=== PATIENT | male | born 1945 | race Caucasian/White ===

== ENCOUNTER 2022-04-07 11:25 | Outpatient (CLI) | payer OTHER, SELFPAY ==
[2022-04-07 17:12] LABS: Chloride* 104 mmol/L (96-114); Potassium* 4.7 mmol/L (3.6-5.1); Sodium* 137 mmol/L (135-149)
[2022-04-07 17:14] LABS: Cholesterol* 187 mg/dL (90-199); Creatinine* 0.8 mg/dL (0.5-1.5); Estimated Glomerular Filt Rate 92 ml/min
[2022-04-07 17:15] LABS: Blood Urea Nitrogen* 15 mg/dL (7-30); Carbon Dioxide* 24 mmol/L (20-32); Glucose* 139 mg/dL (60-115); Triglycerides* 191 mg/dL (40-149)
[2022-04-07 17:16] LABS: Calcium* 9.3 mg/dL (8.4-10.6); HDL Cholesterol* 43 mg/dL (>=40); LDL Cholesterol Calculated 106 mg/dL (<100)
== END 2022-04-07 11:26 | disposition home or self-care (01) ==
PROVIDERS: PCP Family Medicine; Visit Provider Family Medicine
DX: I48.91 Unspecified atrial fibrillation (principal); I10 Essential (primary) hypertension; Z13.6 Encounter for screening for cardiovascular disorders; Z13.1 Encounter for screening for diabetes mellitus
CPT/HCPCS: 80048; 80061

== ENCOUNTER 2022-05-07 09:21 | Outpatient (CLI) | payer OTHER, SELFPAY ==
--- NOTE | 2022-05-07 10:00 | CRLHL7_ITS ---
For Patients: As a result of the Century Cures Act, medical imaging exams and procedure reports are released immediately into your electronic medical record. You may view this report before your referring provider. If you have questions, please contact your health care provider. Indication: ASCENDING AORTIC ANEURYSM Technique: Noncontrast CT chest Please note that all CT scans at this facility use dose modulation, iterative reconstruction, and/or weight-based dosing when appropriate to reduce radiation dose to as low as reasonably achievable. Comparison: None Findings: The ascending aorta measures 3.9 x 3.8 cm. Vascular calcifications are noted within the coronary arteries and at the aortic arch. Thyroid normal, as visualized. No adenopathy or pleural effusion. Upper abdomen is normal. No fracture. Lungs clear. No pulmonary nodule, infiltrate, edema or effusion. Mild dependent atelectasis. Impression: The ascending aorta is upper limits of normal in size measuring 3.9 x 3.8 cm. Please note that all CT scans at this facility use dose modulation, iterative reconstruction, and/or weight-based dosing when appropriate to reduce radiation dose to as low as reasonably achievable. Dictated by Brock Goldman MD @ 05/07/2022 1:18:15 PM (Electronically Signed)
== END 2022-05-07 09:22 | disposition home or self-care (01) ==
PROVIDERS: PCP Family Medicine; Visit Provider Family Medicine
DX: I71.21 Aneurysm of the ascending aorta, without rupture (principal)
CPT/HCPCS: 71250

== ENCOUNTER 2022-05-29 17:06 | Inpatient (IN) | payer OTHER, SELFPAY ==
[2022-05-29] VITALS (41 sets, daily range): BP systolic 95–136; BP diastolic 40–116; PULSE 78–122; RESP 18–22; TEMP 36.5; O2SAT 86–96; BMI 43.0
--- NOTE | 2022-05-29 17:24 | ED.GENADULT ---
HPI - General Adult General Time Seen by Provider: 17:24 Date Seen: 05/29/22 Chief complaint: Chest Pain Stated complaint: Possible AFIB Time Seen by Provider: 05/29/22 17:08 Source: patient and RN notes reviewed Mode of arrival: ambulatory Limitations: no limitations History of Present Illness HPI narrative: 77-year-old male is ambulatory in the ED with concern of possible atrial fibrillation. He has a history of atrial fibrillation. I did review notes from his last visit in clinic prior to going in. He endorses that he is still been taking his Xarelto every other day. He states he has been sick with cough and cold symptoms for about 3 weeks. Still has ongoing coughing at night, nonproductive. No fevers or chills or night sweats. Had sore throat and some congestion, improved. Had some burning type chest pain ongoing today. Notes no changes in his appetite and no abdominal symptoms with this. Denies any swelling of his lower extremities. Is feeling short of breath. He does not feel his faster racing pulse. Was in clinic in mid April and does not seem to have been in atrial fibrillation based on clinical exam. Denies any alcohol use, no nicotine products. Does drink about 2 cups of coffee in the morning. Related Data Home Medications Medication Instructions Recorded Confirmed budesonide 180 mcg/actuation 2 inhalation BID 04/07/22 04/07/22 breath activated powder inhaler mesalamine 400 mg capsule (with mg PO .Bedtime 04/07/22 04/07/22 delayed release tablets inside) tramadol 50 mg tablet 50 - 100 mg PO Q6H PRN 04/07/22 04/07/22 Previous Rx's Medication Instructions Recorded metformin 500 mg tablet,extended 1,000 mg PO QDAY #180 tabs 04/06/22 release 24 hr losartan 50 mg tablet 50 mg PO QDAY #90 tabs 04/07/22 rivaroxaban 20 mg tablet 20 mg PO DAILY #90 tabs 04/07/22 metoprolol succinate 50 mg See Rx Instructions .Route 05/22/22 tablet,extended release 24 hr .COMPLEX #90 tabs Allergies Allergy/AdvReac Type Severity Reaction Status Date / Time No Known Allergies Allergy Unknown Unverified 04/03/22 17:14 Review of Systems Status of ROS: Reports: 10 or more systems reviewed and unremarkable except as noted in History and below PFSH PFSH Surgical History History of umbilical hernia repair Family History Other Colon cancer Prostate cancer Social History Smoking Status: Former smoker How often do you have a drink containing alcohol: never How often do you have six or more drinks on one occasion: Never AUDIT-C Alcohol total score: 0 Non-prescribed substance use: denies use Exam Const: Vital Signs, click to edit/add: Vital Signs - 24 hr 05/29/22 17:12 05/29/22 17:50 05/29/22 17:25 Temperature 97.7 F Pulse Rate 78 Pulse Rate [Right Pulse Oximeter] 108 H Respiratory Rate 18 Blood Pressure 119/71 Blood Pressure [Ri ght Upper Arm] 117/81 Pulse Oximetry 93 92 94 Oxygen Delivery Me thod Room Air 05/29/22 17:26 05/29/22 17:30 05/29/22 17:36 Temperature Pulse Rate 97 120 H 87 Pulse Rate [Right Pulse Oximeter] Respiratory Rate Blood Pressure 107/77 Blood Pressure [Ri ght Upper Arm] Pulse Oximetry 94 96 91 Oxygen Delivery Me thod 05/29/22 17:45 05/29/22 17:47 05/29/22 17:48 Temperature Pulse Rate 90 95 92 Pulse Rate [Right Pulse Oximeter] Respiratory Rate Blood Pressure 104/71 Blood Pressure [Ri ght Upper Arm] Pulse Oximetry 94 95 94 Oxygen Delivery Me thod 05/29/22 18:00 05/29/22 18:02 05/29/22 18:17 Temperature Pulse Rate 99 92 96 Pulse Rate [Right Pulse Oximeter] Respiratory Rate Blood Pressure 96/81 Blood Pressure [Ri ght Upper Arm] Pulse Oximetry 94 93 94 Oxygen Delivery Me thod 05/29/22 18:30 05/29/22 18:32 05/29/22 18:45 Temperature Pulse Rate 92 88 94 Pulse Rate [Right Pulse Oximeter] Respiratory Rate Blood Pressure 95/67 Blood Pressure [Ri ght Upper Arm] Pulse Oximetry 95 90 92 Oxygen Delivery Me thod 05/29/22 19:00 05/29/22 19:02 05/29/22 19:03 Temperature Pulse Rate 95 99 111 H Pulse Rate [Right Pulse Oximeter] Respiratory Rate Blood Pressure 114/95 H Blood Pressure [Ri ght Upper Arm] Pulse Oximetry 94 94 89 Oxygen Delivery Me thod 05/29/22 19:15 05/29/22 19:25 05/29/22 19:30 Temperature Pulse Rate 106 H 101 H 101 H Pulse Rate [Right Pulse Oximeter] Respiratory Rate Blood Pressure 127/76 Blood Pressure [Ri ght Upper Arm] Pulse Oximetry 92 94 86 L Oxygen Delivery Ok thod 05/29/22 19:33 05/29/22 19:34 05/29/22 20:00 Temperature Pulse Rate 90 92 85 Pulse Rate [Right Pulse Oximeter] Respiratory Rate Blood Pressure 107/66 Blood Pressure [Ri ght Upper Arm] Pulse Oximetry 95 91 94 Oxygen Delivery Ok thod 05/29/22 20:03 05/29/22 20:04 05/29/22 20:30 Temperature Pulse Rate 94 122 H 101 H Pulse Rate [Right Pulse Oximeter] Respiratory Rate Blood Pressure 108/40 L Blood Pressure [Ri ght Upper Arm] Pulse Oximetry 92 92 90 Oxygen Delivery Ok thod 05/29/22 20:33 Temperature Pulse Rate 84 Pulse Rate [Right Pulse Oximeter] Respiratory Rate Blood Pressure 107/93 H Blood Pressure [Ri ght Upper Arm] Pulse Oximetry 92 [facility] has reviewed patient's vital signs: yes Common normals: no apparent distress, oriented x3, no limitations, healthy appearing, alert and well nourished General appearance: cooperative, comfortable, well kempt and well developed Nutritional appearance: obese HENMT: Common normals: normocephalic, head/scalp atraumatic, hearing grossly normal bilaterally, external ears normal, external nose normal, nasal mucous membranes and turbinates normal, moist oral mucous membranes and oropharynx normal Head and scalp: normocephalic and atraumatic Nose: external nose normal and nasal mucous membranes and turbinates normal External ear: external ears normal Eye: Common normals: PERRL, EOMs intact bilaterally, conjunctivae normal and no scleral icterus Conjunctiva: conjunctiva(e) normal Pupil: PERRL Neck & C-Spine: Common normals: full ROM, no lymphadenopathy, supple, no meningeal signs and thyroid normal Thyroid: thyroid normal Chest: Common normals: inspection of chest normal and palpation of chest normal Resp: Common normals: normal respiratory effort, no retractions, no use of accessory muscles and clear to auscultation bilaterally (Diminished lung sounds bilaterally but no crackles heard) Effort & inspection: able to speak in complete sentences Auscultation: clear to auscultation bilaterally (Diminished lung sounds bilaterally but no crackles heard) Cardio: Common normals: no murmurs Rate: tachycardic (Ranges anywhere from low 100s up to 150 when I am in with him) Rhythm: abnormal rhythm irregularly irregular Other: Neck is thick, difficult to assess jugular venous distension. GI: Common normals: Normal to inspection, nondistended, normoactive bowel sounds present, soft to palpation, non-tender, no hepatosplenomegaly, no masses and no bruits Palpation: soft and no hepatosplenomegaly Extremity: Other: No lower extremity edema. Neuro: Common normals: oriented x3, CN's II-XII intact bilaterally, moves all extremities, no focal motor deficits and no sensory deficits noted Sensorium/orientation: alert Meningeal signs: no meningeal signs Psych: Appearance: well kempt Course Course Hospital Course: Nursing staff have patient on cardiac monitoring, appears to be atrial fibrillation, will confirm with an EKG. Will obtain portable chest x-ray to rule out any significant congestive heart failure. Will get appropriate labs. Unfortunately, since he has been taking his Xarelto every other day for some time, he is not a candidate for cardio version unless imminently life-threatening. Have reviewed the stroke risk if not appropriately anticoagulated with cardioversion. Will try some IV metoprolol to capture rate control. Obviously we will be getting a troponin on him as well. Reevaluation(s) Reevaluation #1: Reviewed with Ankur that there is no evidence of any congestive heart failure on his chest x-ray or clinically on my examination. He is feeling a bit better with his heart rate down a little lower. When I am in talking to him he is in the 90s too low 1 100s. Will give him 25 mg oral metoprolol tartrate. I believe he is on 50 mg XL daily. He wanted to know if he was still in atrial fibrillation, reviewed with him he still was. It is possible he may not come out of this and we at best may need to work at rate control. I have talked to him about hospitalization versus outpatient management. He states he does not have a pulse oximeter at home that he could monitors pulse with. Did review with him again that he needs to take his anticoagulant daily to prevent stroke risk from this. Time: 19:11 Reevaluation #2: Patient was seen, reviewed my recommendation for hospitalization. Unfortunately when I came in, patient was experiencing a right calf cramp. Did assist him in standing up, pulse jumped to 140s just with the motion of moving to sit up and stand up. Have reviewed with our hospitalist my concern about him not being able to manage a titration at home of metoprolol. She agrees, feels that his blood pressure warrants watching. Nursing staff was able to find an echo from 2019, that is the most recent we have on file. EF was good then. No significant valvular abnormalities at that time. He will likely get an updated echo upon talking to our hospitalist tomorrow. At this time I do not feel he needs to drip, would plan on titrating with oral metoprolol. Once patient settled back down from his leg cramp, did go back into the 90s. I do wonder if he might need an antiarrhythmic. Hospitalist agrees to take over care. Time: 20:59 Vital Signs Vital signs: Initial Vital Signs Temperature 97.7 F 05/29/22 17:12 Temperature Source Temporal Artery Scan 05/29/22 17:12 Pulse Rate 108 H 05/29/22 17:12 Pulse Rhythm 05/29/22 17:12 Respiratory Rate 18 05/29/22 17:12 Blood Pressure 117/81 05/29/22 17:12 Blood Pressure Mean 93 05/29/22 17:12 Blood Pressure Position Sitting 05/29/22 17:12 Pulse Oximetry 93 05/29/22 17:12 Oxygen Delivery Method 05/29/22 17:12 Vital Signs Temperature 97.7 F 05/29/22 17:12 Pulse Rate 108 H 05/29/22 17:12 Respiratory Rate 18 05/29/22 17:12 Blood Pressure 117/81 05/29/22 17:12 Pulse Oximetry 93 05/29/22 17:12 Oxygen Delivery Method 05/29/22 17:12 Temperature 97.7 F 05/29/22 17:12 Pulse Rate 84 05/29/22 20:33 Respiratory Rate 18 05/29/22 17:12 Blood Pressure 107/93 H 05/29/22 20:33 Pulse Oximetry 92 05/29/22 20:33 Oxygen Delivery Method 05/29/22 17:12 Medical Decision Making Lab Data Lab results reviewed: Yes I reviewed the patient's lab results Labs: Lab Results 05/29/22 05/29/22 05/29/22 Range/Units 17:35 17:35 17:35 WBC 9.66 (4.50-11.00) K/uL RBC 4.95 (4.30-5.90) m/uL Hgb 15.1 (13.5-17.5) gm/dL Hct 44.8 (37.0-53.0) % MCV 91 (80-100) fL MCH 31 (26-34) pg MCHC 34 (32-36) gm/dL RDW Coeff of Jennifer 13.2 (11.5-15.5) % Plt Count 260 (140-440) K/uL Neut % (Auto) 76.6 H (42.0-72.0) % Lymph % (Auto) 11.8 L (20-44) % [place] % (Auto) 10.4 (0.0-11.0) % Eos % (Auto) 0.9 (0.0-7.0) % Baso % (Auto) 0.1 (0.0-3.0) % Neut # (Auto) 7.40 H (1.7-7.0) K/uL Lymph # (Auto) 1.10 (0.90-2.90) K/uL [place] # (Auto) 1.00 H (0.00-0.90) K/UL Eos # (Auto) 0.09 (0.00-0.50) K/uL Baso # (Auto) 0.01 (0.00-0.30) K/uL Sodium 137 (135-149) mmol/L Potassium 4.3 (3.6-5.1) mmol/L Chloride 105 (96-114) mmol/L Carbon Dioxide 22 (20-32) mmol/L BUN 20 (7-30) mg/dL Creatinine 0.9 (0.5-1.5) mg/dL Estimated Creat Clear 65.90 Estimated GFR 89 ml/min Glucose 138 H (60-115) mg/dL Calcium 9.6 (8.4-10.6) mg/dL Magnesium 1.9 (1.5-2.6) mg/dL Total Bilirubin 0.8 (0.1-1.5) mg/dL AST 24 (12-35) U/L ALT 23 (4-50) U/L Alkaline Phosphatase 87 (40-150) U/L NT-Pro-B Natriuret Pep 1220 pg/mL Total Protein 7.8 (6.0-8.3) g/dL Albumin 4.5 (3.3-5.0) g/dL SARS-CoV-2 (PCR) Negative SARS-CoV-2 (Negative) Influenza Type A (PCR) Negative PCR FLU A (Negative) Influenza Type B (PCR) Negative PCR FLU B (Negative) RSV (PCR) Negative PCR RSV (Negative) POC Troponin I (0.01-0.04) ng/ml 05/29/22 Range/Units 17:35 WBC (4.50-11.00) K/uL RBC (4.30-5.90) m/uL Hgb (13.5-17.5) gm/dL Hct (37.0-53.0) % MCV (80-100) fL MCH (26-34) pg MCHC (32-36) gm/dL RDW Coeff of Jennifer (11.5-15.5) % Plt Count (140-440) K/uL Neut % (Auto) (42.0-72.0) % Lymph % (Auto) (20-44) % [place] % (Auto) (0.0-11.0) % Eos % (Auto) (0.0-7.0) % Baso % (Auto) (0.0-3.0) % Neut # (Auto) (1.7-7.0) K/uL Lymph # (Auto) (0.90-2.90) K/uL [place] # (Auto) (0.00-0.90) K/UL Eos # (Auto) (0.00-0.50) K/uL Baso # (Auto) (0.00-0.30) K/uL Sodium (135-149) mmol/L Potassium (3.6-5.1) mmol/L Chloride (96-114) mmol/L Carbon Dioxide (20-32) mmol/L BUN (7-30) mg/dL Creatinine (0.5-1.5) mg/dL Estimated Creat Clear Estimated GFR ml/min Glucose (60-115) mg/dL Calcium (8.4-10.6) mg/dL Magnesium (1.5-2.6) mg/dL Total Bilirubin (0.1-1.5) mg/dL AST (12-35) U/L ALT (4-50) U/L Alkaline Phosphatase (40-150) U/L NT-Pro-B Natriuret Pep pg/mL Total Protein (6.0-8.3) g/dL Albumin (3.3-5.0) g/dL SARS-CoV-2 (PCR) (Negative) Influenza Type A (PCR) (Negative) Influenza Type B (PCR) (Negative) RSV (PCR) (Negative) POC Troponin I 0.01 (0.01-0.04) ng/ml Imaging Data Chest x-ray: Attestation: I have reviewed the pertinent imaging results. My impression: No definitive CHF in my preliminary review. Radiologist's impression: Patient: ANKUR LANNY Facility:?[facility] Patient ID:?[id number] Site Patient ID:?[id number]. Site :?[id number] Study:?XRay Chest Portable 1v-05/29/2022 6:44:00 PM Ordering Physician:Harshil Marquez Final Report: INDICATION: Cough, atrial fibrillation TECHNIQUE: Chest radiograph 1 view COMPARISON: 03/16/2019 FINDINGS: The sensitivity and specificity of the exam are severely limited by the patient`s body habitus. Mediastinum: The mediastinum is normal in appearance. Mild cardiomegaly is noted without interval change. Lung: Small lung volumes are present with mild bibasilar atelectasis. No sign of pleural effusion seen. No pneumothorax is identified. Bone and Soft tissue: Unremarkable for age. IMPRESSION: 1. Mild cardiomegaly is noted without interval change. Dictated by Truman Avila MD @ 05/29/2022 6:59:01 PM Dictated by: Truman Avila MD @ 05/29/2022 18:59:03 (Electronic Signature) ECG Data Attestation: I personally reviewed and interpreted this ECG as follows: (Atrial fibrillation with rapid ventricular response, 118 beats per minute. Incomplete right bundle branch block. No definitive ischemia.) Critical Care Time Critical Care Time Critical Care Time: Yes Attestation: The patient required my highest level preparedness to intervene emergently and I personally spent this critical care time directly and personally managing the patient. This critical care time included: Obtaining a history; Examining the patient; Pulse oximetry; Ordering and reviewing of studies; Arranging urgent treatment with development of a management plan; Evaluation of patients response to treatment; Frequent reassessment discussions with other providers. This critical care time was performed to assess and manage the high probability of imminent life-threatening deterioration that could result in multiorgan failure. It was exclusive of separate billable procedures and treating other patients and teaching time. Total Critical Care Time in Minutes: 30 (Initial 30 minutes of critical care time for evaluation and management of atrial fibrillation with RVR.) Discharge Plan Discharge Clinical Impression: Atrial fibrillation with rapid ventricular response Patient Disposition: Admitted As Inpatient Prescriptions: No Action mesalamine 400 mg capsule (with del rel tablets) PO .Bedtime budesonide 180 mcg/actuation aerosol powdr breath activated 2 inhalation BID tramadol 50 mg tablet 50 - 100 mg PO Q6H PRN losartan 50 mg tablet 50 mg PO QDAY Qty: 90 3RF rivaroxaban 20 mg tablet 20 mg PO DAILY Qty: 90 3RF Rx Instructions: WITH MEAL metformin 500 mg tablet extended release 24 hr 1,000 mg PO QDAY Qty: 180 3RF metoprolol succinate 50 mg tablet extended release 24 hr See Rx Instructions .ROUTE .COMPLEX Qty: 90 3RF Dose Instruction: TAKE 1 TABLET BY MOUTH EVERY DAY DUE FOR ANNUAL PHYSICAL, PLEASE CALL CLINIC TO SCHEDULE. Rx Instructions: TAKE 1 TABLET BY MOUTH EVERY DAY DUE FOR ANNUAL PHYSICAL, PLEASE CALL CLINIC TO SCHEDULE. Follow Up/Referrals: John Chavis MD [Primary Care Provider] -
--- NOTE | 2022-05-29 17:31 | CRLHL7_ITS ---
For Patients: As a result of the Century Cures Act, medical imaging exams and procedure reports are released immediately into your electronic medical record. You may view this report before your referring provider. If you have questions, please contact your health care provider. INDICATION: Cough, atrial fibrillation TECHNIQUE: Chest radiograph 1 view COMPARISON: 03/16/2019 FINDINGS: The sensitivity and specificity of the exam are severely limited by the patient`s body habitus. Mediastinum: The mediastinum is normal in appearance. Mild cardiomegaly is noted without interval change. Lung: Small lung volumes are present with mild bibasilar atelectasis. No sign of pleural effusion seen. No pneumothorax is identified. Bone and Soft tissue: Unremarkable for age. IMPRESSION: 1. Mild cardiomegaly is noted without interval change. Dictated by Truman Avila MD @ 05/29/2022 6:59:01 PM Dictated by: Truman Avila MD @ 05/29/2022 18:59:03 (Electronically Signed)
[2022-05-29] MEDS: METOPROLOL TARTRATE 1 MG/ML inj 5 MG IVP (17:38)
[2022-05-29 18:05] LABS: Troponin, Point-of-Care* 0.01 ng/ml (0.01-0.04)
[2022-05-29 18:06] LABS: Basophils Absolute Auto 0.01 K/uL (0.00-0.30); Basophils Percent Auto 0.1 % (0.0-3.0); Eosinophils Absolute Auto 0.09 K/uL (0.00-0.50); Eosinophils Percent Auto 0.9 % (0.0-7.0); Hematocrit 44.8 % (37.0-53.0); Hemoglobin* 15.1 gm/dL (13.5-17.5); Immature Granulocytes Abs Auto 0.02 K/uL (0.00-0.30); Immature Granulocytes Pct Auto 0.2 %; Lymphocytes Percent Auto 11.8 % (20-44); Mean Corpuscular HGB Conc 34 gm/dL (32-36); Mean Corpuscular Hemoglobin 31 pg (26-34); Mean Corpuscular Volume 91 fL (80-100); Monocytes Percent Auto 10.4 % (0.0-11.0); Neutrophils Percent Auto 76.6 % (42.0-72.0); Platelet Count* 260 K/uL (140-440); RDW Coefficient of Variation % 13.2 % (11.5-15.5); Red Blood Count 4.95 m/uL (4.30-5.90); White Blood Count* 9.66 K/uL (4.50-11.00)
[2022-05-29 18:16] LABS: Slide Review Reflex No
[2022-05-29 18:19] LABS: Chloride* 105 mmol/L (96-114)
[2022-05-29 18:20] LABS: Albumin* 4.5 g/dL (3.3-5.0); Potassium* 4.3 mmol/L (3.6-5.1); Sodium* 137 mmol/L (135-149)
[2022-05-29 18:22] LABS: Bilirubin Total* 0.8 mg/dL (0.1-1.5); Creatinine* 0.9 mg/dL (0.5-1.5); Estimated Glomerular Filt Rate 89 ml/min
[2022-05-29 18:23] LABS: Alanine Aminotransferase* 23 U/L (4-50); Alkaline Phosphatase* 87 U/L (40-150); Aspartate Amino Transferase* 24 U/L (12-35); Blood Urea Nitrogen* 20 mg/dL (7-30); Calcium* 9.6 mg/dL (8.4-10.6); Carbon Dioxide* 22 mmol/L (20-32); Glucose* 138 mg/dL (60-115); Magnesium* 1.9 mg/dL (1.5-2.6); Total Protein* 7.8 g/dL (6.0-8.3)
[2022-05-29 18:41] LABS: PCR FLU A Negative PCR FLU A (Negative); PCR FLU B Negative PCR FLU B (Negative); PCR RSV Negative PCR RSV (Negative)
[2022-05-29 18:42] LABS: NT Pro B Type NatriureticPept* 1220 pg/mL; SARS PCR* Negative SARS-CoV-2 (Negative)
[2022-05-29] MEDS: METOPROLOL TARTRATE 25 MG TABLET PO ×2 (19:23→23:18)
--- NOTE | 2022-05-29 22:12 | ED.NURSE ---
Report called to M/S RN.
--- NOTE | 2022-05-29 22:49 | PM.IMHP1 ---
Hospitalist- H&P: HPI History of Present Illness Date Seen: 05/29/22 Chief complaint: afib rvr Narrative: ADMISSION HISTORY AND PHYSICAL - HOSPITALIST Chief Complaint: Some chest burning, have not been feeling well HPI: 77-year-old chuck has a history of paroxysmal AFib on oral anticoagulation and beta blockade who presents with 3 weeks of an upper respiratory infection, sore throat and starting today some substernal chest discomfort. He has known AFib that has been in RVR in the past. He has been cardioverted twice. He is taking Xarelto but admits he only takes it every other day because sometimes he bruises are gets bloody noses. No known history of CAD or CHF. From a URI (one of the grandkids gave me it - covid negative. boosted and has flu shot) is getting better. He wasn't sure after shoveling if he was having an RI, broke a rib from coughing or was in AFIB. So he came on in. ED - got a CXR and labs IV lopressor and oral - observation - still jumping into the 120's with exertion. I've updated the PFSH, medications and allergies in the [facility] tabs. INVESTIGATIONS: LABS/MICRO/ECG/IMAGING Blood pressure has been a little soft at 108/40 with presentation and now is 136/116 Pulses been from 122-95, AFib Respiratory rate normal, pulse ox is been low 90. CBCs unremarkable Electrolytes, renal function all normal Glucose 138 A1c in March was 7.5 Magnesium, LFTs all normal BNP 1220 - historically I can see 1140 in 2014 Respiratory viral pathogen panel negative CXR from admission Mild cardiomegaly is noted without interval change. ECHO 02/2019 Final Impressions: 1. Technically limited exam. 2. Echo contrast was administrered to enhance visualization of all left ventricular segments. 3. Normal LV size, moderately increased wall thickness, normal global systolic function with an estimated EF of 65 - 70%. 4. Right ventricular cavity size is mildly enlarged, global systolic RV function is normal. 5. Mildly enlarged left atrium. 6. The aortic valve is trileaflet and sclerotic, no stenosis and no regurgitation. 7. The aortic sinus is dilated with a maximal diameter of 4.3 cm. REVIEW OF SYSTEMS: 12-point ROS completed with patient and negative unless otherwise stated in HPI or below. PHYSICAL EXAM: CODE STATUS: FULL CODE CONSTITUTIONAL: alert; a little crankly - calls himself an old fart and I feel shitty VITAL SIGNS: see record. HEENT: Normocephalic, atraumatic. PERRL, EOMI, conjunctivae pink, no scleral icterus. Ears and nose externally normal. Pharynx normal. NECK: No JVD. No carotid bruit, no thyromegaly, no adenopathy. CHEST: Clear to auscultation bilaterally - DISTANT HEART: S1 and S2 normal. No harsh murmurs. Edema MINIMAL MUSCULOSKELETAL: No gross joint deformity or swelling. NEURO: Cranial nerves intact. Grossly intact. No asymmetric findings. SKIN: No rashes, petechiae, concerning changes PSYCHIATRIC: Euthymic. ADMIT TO MEDSURG: FLOOR CARE DVT: XARELTO GI: PO intake Time spent: 70 minutes examining patient, conferring with family and patient, care staff, developing care plan [facility] Medical History Adenomatous polyp of colon Ascending aortic aneurysm Family history of colon cancer Osteoarthritis of right hip Paroxysmal atrial fibrillation Surgical History History of umbilical hernia repair Family History Other Colon cancer Prostate cancer Social History Highest level of school completed/degree received: high school graduate Smoking Status: Former smoker Do you use any of these nicotine containing products: None Second hand tobacco smoke exposure: No How often do you have a drink containing alcohol: never How often do you have six or more drinks on one occasion: Never AUDIT-C Alcohol total score: 0 Non-prescribed substance use: denies use Caffeine: Yes service: Yes Meds Home Medications and Allergies Home Medications Medication Instructions Recorded Confirmed Type budesonide 180 mcg/actuation 2 inh inhalation BID 04/07/22 05/29/22 History breath activated powder inhaler mesalamine 400 mg capsule (with 1,200 mg PO BID 04/07/22 05/29/22 History delayed release tablets inside) tramadol 50 mg tablet 50 - 100 mg PO Q6H PRN 04/07/22 05/29/22 History Allergies Allergy/AdvReac Type Severity Reaction Status Date / Time No Known Allergies Allergy Unknown Unverified 04/03/22 17:14 Exam Const: Vital Signs, click to edit/add: Vital Signs - 24 hr 05/29/22 17:12 05/29/22 17:50 05/29/22 17:25 Temperature 97.7 F Pulse Rate 78 Pulse Rate [Right Pulse Oximeter] 108 H Respiratory Rate 18 Blood Pressure 119/71 Blood Pressure [Ri ght Upper Arm] 117/81 Pulse Oximetry 93 92 94 Oxygen Delivery Me thod Room Air 05/29/22 17:26 05/29/22 17:30 05/29/22 17:36 Temperature Pulse Rate 97 120 H 87 Pulse Rate [Right Pulse Oximeter] Respiratory Rate Blood Pressure 107/77 Blood Pressure [Ri ght Upper Arm] Pulse Oximetry 94 96 91 Oxygen Delivery Me thod 05/29/22 17:45 05/29/22 17:47 05/29/22 17:48 Temperature Pulse Rate 90 95 92 Pulse Rate [Right Pulse Oximeter] Respiratory Rate Blood Pressure 104/71 Blood Pressure [Ri ght Upper Arm] Pulse Oximetry 94 95 94 Oxygen Delivery Me thod 05/29/22 18:00 05/29/22 18:02 05/29/22 18:17 Temperature Pulse Rate 99 92 96 Pulse Rate [Right Pulse Oximeter] Respiratory Rate Blood Pressure 96/81 Blood Pressure [Ri ght Upper Arm] Pulse Oximetry 94 93 94 Oxygen Delivery Me thod 05/29/22 18:30 05/29/22 18:32 05/29/22 18:45 Temperature Pulse Rate 92 88 94 Pulse Rate [Right Pulse Oximeter] Respiratory Rate Blood Pressure 95/67 Blood Pressure [Ri ght Upper Arm] Pulse Oximetry 95 90 92 Oxygen Delivery Me thod 05/29/22 19:00 05/29/22 19:02 05/29/22 19:03 Temperature Pulse Rate 95 99 111 H Pulse Rate [Right Pulse Oximeter] Respiratory Rate Blood Pressure 114/95 H Blood Pressure [Ri ght Upper Arm] Pulse Oximetry 94 94 89 Oxygen Delivery Me thod 05/29/22 19:15 05/29/22 19:25 05/29/22 19:30 Temperature Pulse Rate 106 H 101 H 101 H Pulse Rate [Right Pulse Oximeter] Respiratory Rate Blood Pressure 127/76 Blood Pressure [Ri ght Upper Arm] Pulse Oximetry 92 94 86 [facility] 19:33 05/29/22 19:34 05/29/22 20:00 Temperature Pulse Rate 90 92 85 Pulse Rate [Right Pulse Oximeter] Respiratory Rate Blood Pressure 107/66 Blood Pressure [Ri ght Upper Arm] Pulse Oximetry 95 91 94 [facility] 05/29/22 20:03 05/29/22 20:04 05/29/22 20:30 Temperature Pulse Rate 94 122 H 101 H Pulse Rate [Right Pulse Oximeter] Respiratory Rate Blood Pressure 108/40 L Blood Pressure [Ri ght Upper Arm] Pulse Oximetry 92 92 90 Oxygen Delivery [facility] 05/29/22 20:33 05/29/22 20:34 05/29/22 20:45 Temperature Pulse Rate 84 102 H 94 Pulse Rate [Right Pulse Oximeter] Respiratory Rate Blood Pressure 107/93 H Blood Pressure [Ri ght Upper Arm] Pulse Oximetry 92 90 90 Oxygen Delivery [facility] 05/29/22 21:00 05/29/22 21:02 05/29/22 21:15 Temperature Pulse Rate 93 79 92 Pulse Rate [Right Pulse Oximeter] Respiratory Rate Blood Pressure 110/77 Blood Pressure [Ri ght Upper Arm] Pulse Oximetry 92 95 91 Oxygen Delivery [facility] 05/29/22 21:30 05/29/22 21:34 05/29/22 22:00 Temperature Pulse Rate 87 94 101 H Pulse Rate [Right Pulse Oximeter] Respiratory Rate Blood Pressure 127/89 Blood Pressure [Ri ght Upper Arm] Pulse Oximetry 94 91 91 [facility] 05/29/22 22:03 Temperature Pulse Rate 95 Pulse Rate [Right Pulse Oximeter] Respiratory Rate Blood Pressure 136/116 H Blood Pressure [Ri ght Upper Arm] Pulse Oximetry 88 Oxygen Delivery [facility] Hospitalist - H&P: Result Labs Labs: Short CBC 05/29/22 Range/Units 17:35 WBC 9.66 (4.50-11.00) K/uL Hgb 15.1 (13.5-17.5) gm/dL Hct 44.8 (37.0-53.0) % Plt Count 260 (140-440) K/uL BMP 05/29/22 17:35 Sodium 137 Potassium 4.3 Chloride 105 Carbon Dioxide 22 BUN 20 Creatinine 0.9 Glucose 138 H Calcium 9.6 Liver Function 05/29/22 Range/Units 17:35 Total Bilirubin 0.8 (0.1-1.5) mg/dL AST 24 (12-35) U/L ALT 23 (4-50) U/L Alkaline Phosphatase 87 (40-150) U/L Albumin 4.5 (3.3-5.0) g/dL Assessment and Plan Assessment and plan (1) Atrial fibrillation with rapid ventricular response: Problem comment: 2014; has been cardioverted twice in the past. last echo was 2019. he is on xarelto (but takes it QOD 2/2 nose bleeds and bruising). he may need more betablockade than 25mg toprol xl qam. I will put him on 25 po q4 with HOLD PARAMETERS. Update echo. Likely can discharge in the next 24. 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 on orals. Status: Acute (5) Obstructive sleep apnea syndrome: Problem comment: Did not tolerate CPAP Status: Acute (6) Morbid obesity with body mass index (BMI) of 40.0 to 44.9 in adult: Problem comment: BMI 43. Status: Acute
[2022-05-29] MEDS: METFORMIN ER 500 MG 1000 MG PO (23:18)
[2022-05-29] MEDS: LOSARTAN POTASSIUM 50 MG TABLET PO (23:19)
[2022-05-30] VITALS (9 sets, daily range): BP systolic 89–127; BP diastolic 51–88; PULSE 80–104; RESP 20–22; TEMP 36.4–36.7; O2SAT 92–94
[2022-05-30] MEDS: METOPROLOL TARTRATE 25 MG TABLET PO (02:41)
--- NOTE | 2022-05-30 05:15 | PC.NURSE ---
Addendum entered by Clive Salas RN 05/30/22 07:00: Bp at 0630 was 98/81 and metoprolol held per order. Original Note: Admission note: Pt arrived at the unit at 2220 on a W/C accompanied by ED staff. Alert and oriented on arrival and able to independently ambulate in room. Admission assessment completed and V/S stable. Pt complained of mild burning sensation and chest tightness but no SOB. examined pt and ordered metoprolol for the A. fib. Blood glucose level at 2300 was 163. Pt on continuous pulse and telemetry monitoring. Pt had adequate sleep tonight.
[2022-05-30 07:14] LABS: HCO3 VBG 27 mmol/L (21-28); PCO2 VBG 43 mmHG (40-50); PO2 VBG 43.9 mmHG (25-47); pH VBG 7.407 (7.32-7.43)
[2022-05-30 07:36] LABS: Chloride* 105 mmol/L (96-114); Potassium* 4.3 mmol/L (3.6-5.1); Sodium* 137 mmol/L (135-149)
[2022-05-30 07:39] LABS: Carbon Dioxide* 26 mmol/L (20-32); Creatinine* 0.8 mg/dL (0.5-1.5); Estimated Glomerular Filt Rate 92 ml/min
[2022-05-30 07:40] LABS: Blood Urea Nitrogen* 16 mg/dL (7-30); Glucose* 157 mg/dL (60-115)
[2022-05-30 07:46] LABS: NT Pro B Type NatriureticPept* 1050 pg/mL
[2022-05-30 07:51] LABS: Troponin I* < 0.01 ng/mL (0.01-0.04)
[2022-05-30 08:11] LABS: Thyroid Stimulating Hormone* 0.867 uIU/mL (0.270-4.20)
[2022-05-30] MEDS: LOSARTAN POTASSIUM 50 MG TABLET PO (09:43)
[2022-05-30] MEDS: METFORMIN ER 500 MG 1000 MG PO (09:43)
[2022-05-30] MEDS: RIVAROXABAN 10 MG TABLET 20 MG PO (09:43)
--- NOTE | 2022-05-30 11:19 | PM.DS1 ---
DS: Providers Provider Time Seen by Provider: 07:55 Date Seen: 06/01/22 Date of admission: 05/29/22 22:18 Primary care physician: John Chavis MD Admitting Clinician: Vinod Royal MD Consults: 05/29/22 22:39 Consult to Occupational Therapy [CONS] Routine Comment: Reason(s) for OT Consult:: Evaluate and Treat Any Restrictions?:: No Restrictions Consult to Physical Therapy [CONS] Routine Comment: Reason(s) for PT Consult:: Evaluate and Treat Any Restrictions?:: No Restrictions Consult to Power Shear Operator [CONS] Routine Comment: Reason for Consult:: Social Service Consult Attending Physician on discharge: Faith Alegria MD Date of Discharge: 06/01/22 DS: Diagnosis Discharge Diagnosis (1) Atrial fibrillation with rapid ventricular response: Status: Acute Problem details: 2014; has been cardioverted twice in the past. ECHO 05/30/22 prelim unchanged from 2019. He is on xarelto (but takes it QOD secondary to nose bleeds and bruising). (2) Hypertension: Status: Acute Problem details: LOW BP - holding losartan. 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 on orals. (5) Obstructive sleep apnea syndrome: Status: Acute Problem details: Did not tolerate CPAP (6) Morbid obesity with body mass index (BMI) of 40.0 to 44.9 in adult: Status: Acute Problem details: BMI 43. (7) Dilatation of aortic sinus of Valsalva: Status: Acute Problem details: ECHO 05/30/22: The aortic sinus is dilated with maximal diameter of 4.3 cm - will need outpatient follow up DS: Summary Hospital Course Hospital Course: This is a 77-year-old male with history of paroxysmal atrial fibrillation for which he is on beta-blockade and oral anticoagulation had substernal chest discomfort and was found to be in atrial fibrillation with rapid ventricular rate. He had had a URI symptoms along with a sore throat for about 3 weeks prior to this. He developed substernal chest pain while shoveling the driveway. Was given IV and oral metoprolol but continued to jump into the 120s with exertion. He was placed on p.r.n. short-acting metoprolol dosing overnight, but low blood pressures complicated heart rate control. Losartan was held. I discontinued his usual long-acting metoprolol dose and started him on short-acting metoprolol at 75 mg twice a day with p.r.n. short-acting metoprolol. He did very well with this regimen and only needed to extra doses of oral metoprolol 25 mg during 24 hours. His blood pressure had improved and he is tolerating metoprolol 100 mg twice a day and will be discharged on that today. During this hospitalization echocardiogram was obtained and showed some decrease in RV function from previously. He did not have any heart failure symptoms during this hospital stay. He is discharged home in stable condition. Note to PCP: Consider referral to cardiology for atrial fibrillation. Also please note that he has new finding of aortic sinus dilatation which will need outpatient follow-up. His losartan is on hold for low blood pressure in the hospital, but this may be able to be restarted at a lower dose by the time he sees you. Time Spent with Patient Time attestation: Total time spent providing and/or coordinating discharge services: Exam Narrative: Exam Narrative: General: No acute distress. Awake, alert, oriented x3. No pallor. No jaundice. Obese. Cardiovascular: regular, not tachycardic. No murmurs, gallops, or rubs. Respiratory: Clear to auscultation bilaterally. No wheezes or crackles. Abdomen: Bowel sounds present. Soft, nondistended, nontender. Extremities: No pedal edema. Const: Vital Signs, click to edit/add: Vital Signs - 24 hr 05/29/22 17:12 05/29/22 17:50 05/29/22 17:25 Temperature 97.7 F Pulse Rate 78 Pulse Rate [Right Pulse Oximeter] 108 H Pulse Rate [orthos tatic lying Pulse Oximeter] Pulse Rate [orthos tatic sitting Puls e Oximeter] Pulse Rate [orthos tatic standing Pul se Oximeter] Respiratory Rate 18 Blood Pressure 119/71 Blood Pressure [Ri ght Arm] Blood Pressure [Ri ght Upper Arm] 117/81 Blood Pressure [or thostatic lying Ri ght Arm] Blood Pressure [or thostatic sitting Right Arm] Blood Pressure [or thostatic standing Right Arm] Pulse Oximetry 93 92 94 Oxygen Delivery Me thod Room Air 05/29/22 17:26 01/05/23 17:30 05/29/22 17:36 Temperature Pulse Rate 97 120 H 87 Pulse Rate [Right Pulse Oximeter] Pulse Rate [orthos tatic lying Pulse Oximeter] Pulse Rate [orthos tatic sitting Puls e Oximeter] Pulse Rate [orthos tatic standing Pul se Oximeter] Respiratory Rate Blood Pressure 107/77 Blood Pressure [Ri ght Arm] Blood Pressure [Ri ght Upper Arm] Blood Pressure [or thostatic lying Ri ght Arm] Blood Pressure [or thostatic sitting Right Arm] Blood Pressure [or thostatic standing Right Arm] Pulse Oximetry 94 96 91 Oxygen Delivery Me thod 05/29/22 17:45 05/29/22 17:47 05/29/22 17:48 Temperature Pulse Rate 90 95 92 Pulse Rate [Right Pulse Oximeter] Pulse Rate [orthos tatic lying Pulse Oximeter] Pulse Rate [orthos tatic sitting Puls e Oximeter] Pulse Rate [orthos tatic standing Pul se Oximeter] Respiratory Rate Blood Pressure 104/71 Blood Pressure [Ri ght Arm] Blood Pressure [Ri ght Upper Arm] Blood Pressure [or thostatic lying Ri ght Arm] Blood Pressure [or thostatic sitting Right Arm] Blood Pressure [or thostatic standing Right Arm] Pulse Oximetry 94 95 94 Oxygen Delivery Me thod 05/29/22 18:00 05/29/22 18:02 05/29/22 18:17 Temperature Pulse Rate 99 92 96 Pulse Rate [Right Pulse Oximeter] Pulse Rate [orthos tatic lying Pulse Oximeter] Pulse Rate [orthos tatic sitting Puls e Oximeter] Pulse Rate [orthos tatic standing Pul se Oximeter] Respiratory Rate Blood Pressure 96/81 Blood Pressure [Ri ght Arm] Blood Pressure [Ri ght Upper Arm] Blood Pressure [or thostatic lying Ri ght Arm] Blood Pressure [or thostatic sitting Right Arm] Blood Pressure [or thostatic standing Right Arm] Pulse Oximetry 94 93 94 Oxygen Delivery Me thod 05/29/22 18:30 05/29/22 18:32 05/29/22 18:45 Temperature Pulse Rate 92 88 94 Pulse Rate [Right Pulse Oximeter] Pulse Rate [orthos tatic lying Pulse Oximeter] Pulse Rate [orthos tatic sitting Puls e Oximeter] Pulse Rate [orthos tatic standing Pul se Oximeter] Respiratory Rate Blood Pressure 95/67 Blood Pressure [Ri ght Arm] Blood Pressure [Ri ght Upper Arm] Blood Pressure [or thostatic lying Ri ght Arm] Blood Pressure [or thostatic sitting Right Arm] Blood Pressure [or thostatic standing Right Arm] Pulse Oximetry 95 90 92 Oxygen Delivery In thod 05/29/22 19:00 05/29/22 19:02 05/29/22 19:03 Temperature Pulse Rate 95 99 111 H Pulse Rate [Right Pulse Oximeter] Pulse Rate [orthos tatic lying Pulse Oximeter] Pulse Rate [orthos tatic sitting Puls e Oximeter] Pulse Rate [orthos tatic standing Pul se Oximeter] Respiratory Rate Blood Pressure 114/95 H Blood Pressure [Ri ght Arm] Blood Pressure [Ri ght Upper Arm] Blood Pressure [or thostatic lying Ri ght Arm] Blood Pressure [or thostatic sitting Right Arm] Blood Pressure [or thostatic standing Right Arm] Pulse Oximetry 94 94 89 Oxygen Delivery In thod 05/29/22 19:15 05/29/22 19:25 05/29/22 19:30 Temperature Pulse Rate 106 H 101 H 101 H Pulse Rate [Right Pulse Oximeter] Pulse Rate [orthos tatic lying Pulse Oximeter] Pulse Rate [orthos tatic sitting Puls e Oximeter] Pulse Rate [orthos tatic standing Pul se Oximeter] Respiratory Rate Blood Pressure 127/76 Blood Pressure [Ri ght Arm] Blood Pressure [Ri ght Upper Arm] Blood Pressure [or thostatic lying Ri ght Arm] Blood Pressure [or thostatic sitting Right Arm] Blood Pressure [or thostatic standing Right Arm] Pulse Oximetry 92 94 86 L Oxygen Delivery In thod 05/29/22 19:33 05/29/22 19:34 05/29/22 20:00 Temperature Pulse Rate 90 92 85 Pulse Rate [Right Pulse Oximeter] Pulse Rate [orthos tatic lying Pulse Oximeter] Pulse Rate [orthos tatic sitting Puls e Oximeter] Pulse Rate [orthos tatic standing Pul se Oximeter] Respiratory Rate Blood Pressure 107/66 Blood Pressure [Ri ght Arm] Blood Pressure [Ri ght Upper Arm] Blood Pressure [or thostatic lying Ri ght Arm] Blood Pressure [or thostatic sitting Right Arm] Blood Pressure [or thostatic standing Right Arm] Pulse Oximetry 95 91 94 Oxygen Delivery In thod 05/29/22 20:03 05/29/22 20:04 05/29/22 20:30 Temperature Pulse Rate 94 122 H 101 H Pulse Rate [Right Pulse Oximeter] Pulse Rate [orthos tatic lying Pulse Oximeter] Pulse Rate [orthos tatic sitting Puls e Oximeter] Pulse Rate [orthos tatic standing Pul se Oximeter] Respiratory Rate Blood Pressure 108/40 L Blood Pressure [Ri ght Arm] Blood Pressure [Ri ght Upper Arm] Blood Pressure [or thostatic lying Ri ght Arm] Blood Pressure [or thostatic sitting Right Arm] Blood Pressure [or thostatic standing Right Arm] Pulse Oximetry 92 92 90 Oxygen Delivery Me thod 05/29/22 20:33 05/29/22 20:34 05/29/22 20:45 Temperature Pulse Rate 84 102 H 94 Pulse Rate [Right Pulse Oximeter] Pulse Rate [orthos tatic lying Pulse Oximeter] Pulse Rate [orthos tatic sitting Puls e Oximeter] Pulse Rate [orthos tatic standing Pul se Oximeter] Respiratory Rate Blood Pressure 107/93 H Blood Pressure [Ri ght Arm] Blood Pressure [Ri ght Upper Arm] Blood Pressure [or thostatic lying Ri ght Arm] Blood Pressure [or thostatic sitting Right Arm] Blood Pressure [or thostatic standing Right Arm] Pulse Oximetry 92 90 90 Oxygen Delivery In thod 05/29/22 21:00 05/29/22 21:02 05/29/22 21:15 Temperature Pulse Rate 93 79 92 Pulse Rate [Right Pulse Oximeter] Pulse Rate [orthos tatic lying Pulse Oximeter] Pulse Rate [orthos tatic sitting Puls e Oximeter] Pulse Rate [orthos tatic standing Pul se Oximeter] Respiratory Rate Blood Pressure 110/77 Blood Pressure [Ri ght Arm] Blood Pressure [Ri ght Upper Arm] Blood Pressure [or thostatic lying Ri ght Arm] Blood Pressure [or thostatic sitting Right Arm] Blood Pressure [or thostatic standing Right Arm] Pulse Oximetry 92 95 91 Oxygen Delivery Me thod 05/29/22 21:30 05/29/22 21:34 05/29/22 22:00 Temperature Pulse Rate 87 94 101 H Pulse Rate [Right Pulse Oximeter] Pulse Rate [orthos tatic lying Pulse Oximeter] Pulse Rate [orthos tatic sitting Puls e Oximeter] Pulse Rate [orthos tatic standing Pul se Oximeter] Respiratory Rate Blood Pressure 127/89 Blood Pressure [Ri ght Arm] Blood Pressure [Ri ght Upper Arm] Blood Pressure [or thostatic lying Ri ght Arm] Blood Pressure [or thostatic sitting Right Arm] Blood Pressure [or thostatic standing Right Arm] Pulse Oximetry 94 91 91 Oxygen Delivery Me thod 05/29/22 22:03 05/29/22 22:39 05/29/22 22:56 Temperature 97.7 F Pulse Rate 95 Pulse Rate [Right Pulse Oximeter] 93 Pulse Rate [orthos tatic lying Pulse Oximeter] Pulse Rate [orthos tatic sitting Puls e Oximeter] Pulse Rate [orthos tatic standing Pul se Oximeter] Respiratory Rate 22 22 Blood Pressure 136/116 H Blood Pressure [Ri ght Arm] 135/96 H Blood Pressure [Ri ght Upper Arm] Blood Pressure [or thostatic lying Ri ght Arm] Blood Pressure [or thostatic sitting Right Arm] Blood Pressure [or thostatic standing Right Arm] Pulse Oximetry 88 95 95 Oxygen Delivery Me thod Room Air Room Air 05/29/22 22:39 05/29/22 22:39 05/29/22 22:39 Temperature 97.7 F Pulse Rate 85 Pulse Rate [Right Pulse Oximeter] Pulse Rate [orthos tatic lying Pulse Oximeter] Pulse Rate [orthos tatic sitting Puls e Oximeter] Pulse Rate [orthos tatic standing Pul se Oximeter] Respiratory Rate 20 20 Blood Pressure Blood Pressure [Ri ght Arm] 135/96 H Blood Pressure [Ri ght Upper Arm] Blood Pressure [or thostatic lying Ri ght Arm] Blood Pressure [or thostatic sitting Right Arm] Blood Pressure [or thostatic standing Right Arm] Pulse Oximetry 93 93 Oxygen Delivery Me thod Room Air Room Air 05/29/22 22:41 05/29/22 23:00 05/30/22 02:58 Temperature 98 F Pulse Rate Pulse Rate [Right Pulse Oximeter] 93 83 Pulse Rate [orthos tatic lying Pulse Oximeter] Pulse Rate [orthos tatic sitting Puls e Oximeter] Pulse Rate [orthos tatic standing Pul se Oximeter] Respiratory Rate 20 20 Blood Pressure Blood Pressure [Ri ght Arm] 107/88 Blood Pressure [Ri ght Upper Arm] Blood Pressure [or thostatic lying Ri ght Arm] Blood Pressure [or thostatic sitting Right Arm] Blood Pressure [or thostatic standing Right Arm] Pulse Oximetry 93 93 Oxygen Delivery Me thod Room Air 05/30/22 06:55 Temperature Pulse Rate Pulse Rate [Right Pulse Oximeter] Pulse Rate [orthos tatic lying Pulse Oximeter] 80 Pulse Rate [orthos tatic sitting Puls e Oximeter] 89 Pulse Rate [orthos tatic standing Pul se Oximeter] 86 Respiratory Rate Blood Pressure Blood Pressure [Ri ght Arm] Blood Pressure [Ri ght Upper Arm] Blood Pressure [or thostatic lying Ri ght Arm] 113/70 Blood Pressure [or thostatic sitting Right Arm] 97/77 Blood Pressure [or thostatic standing Right Arm] 98/81 Pulse Oximetry Oxygen Delivery Me thod DS: Data Data Completed and Pending Completed studies during hospitalization: Ordering Physician: John Chavis M.D. Date of Service: 05/07/22 Procedure(s): CT chest wo con Accession Number(s): [id number] cc: John Chavis M.D.~ For Patients: As a result of the Cures Act, medical imaging exams and procedure reports are released immediately into your electronic medical record. You may view this report before your referring provider. If you have questions, please contact your health care provider. Indication: ASCENDING AORTIC ANEURYSM Technique: Noncontrast CT chest Please note that all CT scans at this facility use dose modulation, iterative reconstruction, and/or weight-based dosing when appropriate to reduce radiation dose to as low as reasonably achievable. Comparison: None Findings: The ascending aorta measures 3.9 x 3.8 cm. Vascular calcifications are noted within the coronary arteries and at the aortic arch. Thyroid normal, as visualized. No adenopathy or pleural effusion. Upper abdomen is normal. No fracture. Lungs clear. No pulmonary nodule, infiltrate, edema or effusion. Mild dependent atelectasis. Impression: The ascending aorta is upper limits of normal in size measuring 3.9 x 3.8 cm. Please note that all CT scans at this facility use dose modulation, iterative reconstruction, and/or weight-based dosing when appropriate to reduce radiation dose to as low as reasonably achievable. Dictated by Brock Goldman MD @ 05/07/2022 1:18:15 PM (Electronically Signed) Ordering Physician: Alma Pascual.D. Date of Service: 05/29/22 Procedure(s): XR chest 1V portable Accession Number(s): [id number] cc: John Chavis M.D.; Alma Pascual M.D.~ For Patients: As a result of the Cures Act, medical imaging exams and procedure reports are released immediately into your electronic medical record. You may view this report before your referring provider. If you have questions, please contact your health care provider. INDICATION: Cough, atrial fibrillation TECHNIQUE: Chest radiograph 1 view COMPARISON: 03/16/2019 FINDINGS: The sensitivity and specificity of the exam are severely limited by the patient`s body habitus. Mediastinum: The mediastinum is normal in appearance. Mild cardiomegaly is noted without interval change. Lung: Small lung volumes are present with mild bibasilar atelectasis. No sign of pleural effusion seen. No pneumothorax is identified. Bone and Soft tissue: Unremarkable for age. IMPRESSION: 1. Mild cardiomegaly is noted without interval change. Dictated by Truman Avila MD @ 05/29/2022 6:59:01 PM Dictated by: Truman Avila MD @ 05/29/2022 18:59:03 (Electronically Signed) 05/29/2022 5:19 p.m. EKG: Atrial fibrillation with rapid ventricular response, heart rate 118 beats per minute. Incomplete right bundle-branch block. 05/30/2022 echocardiogram: Technically limited exam. Normal LV size, moderately increased wall thickness, normal global systolic function with an estimated EF of 55-60%. Mildly enlarged left atrium. Right ventricular cavity size is moderately enlarged, global systolic RV function is mildly reduced. The aortic valve is sclerotic, no stenosis and no regurgitation. The mitral valve is normal, no mitral regurgitation. The inferior vena cava is not well visualized, respiratory size variation not well visualized. No pericardial effusion. The aortic sinus is dilated with maximal diameter of 4.3 cm. Labs on day of discharge: Labs from last 24 hours 05/30/22 05/30/22 05/30/22 06:20 06:20 06:20 WBC RBC Hgb Hct MCV MCH MCHC RDW Coeff of Jennifer Plt Count Neut % (Auto) Lymph % (Auto) [place] % (Auto) Eos % (Auto) Baso % (Auto) Neut # (Auto) Lymph # (Auto) [place] # (Auto) Eos # (Auto) Baso # (Auto) VBG pH 7.407 VBG pCO2 43 VBG pO2 43.9 VBG HCO3 27 Sodium 137 Potassium 4.3 Chloride 105 Carbon Dioxide 26 BUN 16 Creatinine 0.8 Estimated Creat Clear 65.90 Estimated GFR 92 Glucose 157 H Calcium 9.0 Magnesium Total Bilirubin AST ALT Alkaline Phosphatase Troponin I < 0.01 L NT-Pro-B Natriuret Pep 1050 Total Protein Albumin TSH 0.867 SARS-CoV-2 (PCR) Influenza Type A (PCR) Influenza Type B (PCR) RSV (PCR) POC Troponin I 05/29/22 05/29/22 05/29/22 17:35 17:35 17:35 WBC RBC Hgb Hct MCV MCH MCHC RDW Coeff of Jennifer Plt Count Neut % (Auto) Lymph % (Auto) [place] % (Auto) Eos % (Auto) Baso % (Auto) Neut # (Auto) Lymph # (Auto) [place] # (Auto) Eos # (Auto) Baso # (Auto) VBG pH VBG pCO2 VBG pO2 VBG HCO3 Sodium 137 Potassium 4.3 Chloride 105 Carbon Dioxide 22 BUN 20 Creatinine 0.9 Estimated Creat Clear 65.90 Estimated GFR 89 Glucose 138 H Calcium 9.6 Magnesium 1.9 Total Bilirubin 0.8 AST 24 ALT 23 Alkaline Phosphatase 87 Troponin I NT-Pro-B Natriuret Pep 1220 Total Protein 7.8 Albumin 4.5 TSH SARS-CoV-2 (PCR) Negative SARS-CoV-2 Influenza Type A (PCR) Negative PCR FLU A Influenza Type B (PCR) Negative PCR FLU B RSV (PCR) Negative PCR RSV POC Troponin I 0.01 05/29/22 17:35 WBC 9.66 RBC 4.95 Hgb 15.1 Hct 44.8 MCV 91 MCH 31 MCHC 34 RDW Coeff of Jennifer 13.2 Plt Count 260 Neut % (Auto) 76.6 H Lymph % (Auto) 11.8 L [place] % (Auto) 10.4 Eos % (Auto) 0.9 Baso % (Auto) 0.1 Neut # (Auto) 7.40 H Lymph # (Auto) 1.10 [place] # (Auto) 1.00 H Eos # (Auto) 0.09 Baso # (Auto) 0.01 VBG pH VBG pCO2 VBG pO2 VBG HCO3 Sodium Potassium Chloride Carbon Dioxide BUN Creatinine Estimated Creat Clear Estimated GFR Glucose Calcium Magnesium Total Bilirubin AST ALT Alkaline Phosphatase Troponin I NT-Pro-B Natriuret Pep Total Protein Albumin TSH SARS-CoV-2 (PCR) Influenza Type A (PCR) Influenza Type B (PCR) RSV (PCR) POC Troponin I Discharge Plan Discharge Disposition: Home, Self-Care Date of Admission: 05/31/22 17:01 Attending Provider on Discharge: Faith Alegria Primary Care Provider: John Chavis Condition: Improved Anticipated Discharge Date/Time: 06/01/22 09:41 Discharge Medications: New metoprolol tartrate 100 mg tablet 100 mg PO BID Qty: 60 0RF Continued mesalamine 400 mg capsule (with del rel tablets) 1,200 mg PO BID budesonide 180 mcg/actuation aerosol powdr breath activated 2 inh inhalation BID tramadol 50 mg tablet 50 - 100 mg PO Q6H PRN rivaroxaban 20 mg tablet 20 mg PO DAILY Qty: 90 3RF Rx Instructions: WITH MEAL metformin 500 mg tablet extended release 24 hr 1,000 mg PO QDAY Qty: 180 3RF Discontinued losartan 50 mg tablet 50 mg PO QDAY Qty: 90 3RF metoprolol succinate 50 mg tablet extended release 24 hr See Rx Instructions .ROUTE .COMPLEX Qty: 90 3RF Dose Instruction: TAKE 1 TABLET BY MOUTH EVERY DAY DUE FOR ANNUAL PHYSICAL, PLEASE CALL CLINIC TO SCHEDULE. Rx Instructions: TAKE 1 TABLET BY MOUTH EVERY DAY DUE FOR ANNUAL PHYSICAL, PLEASE CALL CLINIC TO SCHEDULE. Discharge Orders: Discharge Order (Routine); Ordered 06/01/22 Ordered By: Faith Alegria Patient Education: A-fib (Atrial Fibrillation) (DC) Activity Level: Activity as Tolerated Discharge Diet: Diabetic Follow Up Appointments: John Chavis MD [Primary Care Provider] - 06/06/22 9:45 am (later this week for f/u afib with [facility]) Forms: [employer] Info Instructions
--- NOTE | 2022-05-30 12:32 | P.IMPN_ITS ---
Progress Note: A&P Assessment and plan (1) Atrial fibrillation with rapid ventricular response: Problem details: 2014; has been cardioverted twice in the past. ECHO 05/30/22 prelim unchanged from 2019. Rate controlled overnight, but BP low today for which metoprolol was held and now having occasional HR to 106. Asymptomatic. Give IVF bolus and restart metoprolol XL at home dosing with prn short acting metoprolol. Keep overnight yet for monitoring HR and blood pressure while adjusting meds. He is on xarelto (but takes it QOD secondary to nose bleeds and bruising). Status: Acute (2) Hypertension: Problem details: beta blockade LOW BP - hold losartan, give IVF bolus. 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 on orals. Status: Acute (5) Obstructive sleep apnea syndrome: Problem details: Did not tolerate CPAP Status: Acute (6) Morbid obesity with body mass index (BMI) of 40.0 to 44.9 in adult: Problem details: BMI 43. Status: Acute Subjective Time Seen by Provider: 09:39 Date Seen: 05/30/22 Interval history: When I spoke with wean this morning, his blood pressure had been low enough earlier that he was unable to get his scheduled dose of metoprolol. His blood pressure had improved some by the time I saw him, but was still soft systolic of 104. Denies any feeling of dizziness or lightheadedness. I went back this afternoon at 12:30 p.m. and his Queenie was also in the room. We discussed his blood pressure, the most recent of which had a systolic of 89. We repeated the blood pressure and it was now just above 100 systolic. Again he is not experiencing any symptoms with this. He denies chest pain or shortness of breath. He desires to go home today, but is understanding that with the low blood pressure it is making it difficult to give metoprolol which is ordered to keep his heart rate under control which is why he is here. Exam Narrative: Exam Narrative: General: No acute distress. Awake, alert, oriented x3. No pallor. No jaundice. Obese. Oropharynx: Clear. Mucous membranes moist. Cardiovascular: Irregularly irregular. No murmurs, gallops, or rubs. Respiratory: Clear to auscultation bilaterally. No wheezes or crackles. Abdomen: Bowel sounds present. Soft, nondistended, nontender. Extremities: No pedal edema. Const: Vital Signs, click to edit/add: Vital Signs - 24 hr 05/29/22 17:12 05/29/22 17:50 05/29/22 17:25 Temperature 97.7 F Pulse Rate 78 Pulse Rate [Right Pulse Oximeter] 108 H Pulse Rate [orthos tatic lying Pulse Oximeter] Pulse Rate [orthos tatic sitting Puls e Oximeter] Pulse Rate [orthos tatic standing Pul se Oximeter] Respiratory Rate 18 Blood Pressure 119/71 Blood Pressure [Ri ght Arm] Blood Pressure [Ri ght Upper Arm] 117/81 Blood Pressure [or thostatic lying Ri ght Arm] Blood Pressure [or thostatic sitting Right Arm] Blood Pressure [or thostatic standing Right Arm] Pulse Oximetry 93 92 94 Oxygen Delivery Me thod Room Air 05/29/22 17:26 05/29/22 17:30 05/29/22 17:36 Temperature Pulse Rate 97 120 H 87 Pulse Rate [Right Pulse Oximeter] Pulse Rate [orthos tatic lying Pulse Oximeter] Pulse Rate [orthos tatic sitting Puls e Oximeter] Pulse Rate [orthos tatic standing Pul se Oximeter] Respiratory Rate Blood Pressure 107/77 Blood Pressure [Ri ght Arm] Blood Pressure [Ri ght Upper Arm] Blood Pressure [or thostatic lying Ri ght Arm] Blood Pressure [or thostatic sitting Right Arm] Blood Pressure [or thostatic standing Right Arm] Pulse Oximetry 94 96 91 Oxygen Delivery Me thod 05/29/22 17:45 05/29/22 17:47 05/29/22 17:48 Temperature Pulse Rate 90 95 92 Pulse Rate [Right Pulse Oximeter] Pulse Rate [orthos tatic lying Pulse Oximeter] Pulse Rate [orthos tatic sitting Puls e Oximeter] Pulse Rate [orthos tatic standing Pul se Oximeter] Respiratory Rate Blood Pressure 104/71 Blood Pressure [Ri ght Arm] Blood Pressure [Ri ght Upper Arm] Blood Pressure [or thostatic lying Ri ght Arm] Blood Pressure [or thostatic sitting Right Arm] Blood Pressure [or thostatic standing Right Arm] Pulse Oximetry 94 95 94 Oxygen Delivery Me thod 05/29/22 18:00 05/29/22 18:02 05/29/22 18:17 Temperature Pulse Rate 99 92 96 Pulse Rate [Right Pulse Oximeter] Pulse Rate [orthos tatic lying Pulse Oximeter] Pulse Rate [orthos tatic sitting Puls e Oximeter] Pulse Rate [orthos tatic standing Pul se Oximeter] Respiratory Rate Blood Pressure 96/81 Blood Pressure [Ri ght Arm] Blood Pressure [Ri ght Upper Arm] Blood Pressure [or thostatic lying Ri ght Arm] Blood Pressure [or thostatic sitting Right Arm] Blood Pressure [or thostatic standing Right Arm] Pulse Oximetry 94 93 94 Oxygen Delivery Me thod 05/29/22 18:30 05/29/22 18:32 05/29/22 18:45 Temperature Pulse Rate 92 88 94 Pulse Rate [Right Pulse Oximeter] Pulse Rate [orthos tatic lying Pulse Oximeter] Pulse Rate [orthos tatic sitting Puls e Oximeter] Pulse Rate [orthos tatic standing Pul se Oximeter] Respiratory Rate Blood Pressure 95/67 Blood Pressure [Ri ght Arm] Blood Pressure [Ri ght Upper Arm] Blood Pressure [or thostatic lying Ri ght Arm] Blood Pressure [or thostatic sitting Right Arm] Blood Pressure [or thostatic standing Right Arm] Pulse Oximetry 95 90 92 Oxygen Delivery Mn thod 05/29/22 19:00 05/29/22 19:02 05/29/22 19:03 Temperature Pulse Rate 95 99 111 H Pulse Rate [Right Pulse Oximeter] Pulse Rate [orthos tatic lying Pulse Oximeter] Pulse Rate [orthos tatic sitting Puls e Oximeter] Pulse Rate [orthos tatic standing Pul se Oximeter] Respiratory Rate Blood Pressure 114/95 H Blood Pressure [Ri ght Arm] Blood Pressure [Ri ght Upper Arm] Blood Pressure [or thostatic lying Ri ght Arm] Blood Pressure [or thostatic sitting Right Arm] Blood Pressure [or thostatic standing Right Arm] Pulse Oximetry 94 94 89 Oxygen Delivery Mn thod 05/29/22 19:15 05/29/22 19:25 05/29/22 19:30 Temperature Pulse Rate 106 H 101 H 101 H Pulse Rate [Right Pulse Oximeter] Pulse Rate [orthos tatic lying Pulse Oximeter] Pulse Rate [orthos tatic sitting Puls e Oximeter] Pulse Rate [orthos tatic standing Pul se Oximeter] Respiratory Rate Blood Pressure 127/76 Blood Pressure [Ri ght Arm] Blood Pressure [Ri ght Upper Arm] Blood Pressure [or thostatic lying Ri ght Arm] Blood Pressure [or thostatic sitting Right Arm] Blood Pressure [or thostatic standing Right Arm] Pulse Oximetry 92 94 86 L Oxygen Delivery Mn thod 05/29/22 19:33 05/29/22 19:34 05/29/22 20:00 Temperature Pulse Rate 90 92 85 Pulse Rate [Right Pulse Oximeter] Pulse Rate [orthos tatic lying Pulse Oximeter] Pulse Rate [orthos tatic sitting Puls e Oximeter] Pulse Rate [orthos tatic standing Pul se Oximeter] Respiratory Rate Blood Pressure 107/66 Blood Pressure [Ri ght Arm] Blood Pressure [Ri ght Upper Arm] Blood Pressure [or thostatic lying Ri ght Arm] Blood Pressure [or thostatic sitting Right Arm] Blood Pressure [or thostatic standing Right Arm] Pulse Oximetry 95 91 [facility] 20:03 05/29/22 20:04 05/29/22 20:30 Temperature Pulse Rate 94 122 H 101 H Pulse Rate [Right Pulse Oximeter] Pulse Rate [orthos tatic lying Pulse Oximeter] Pulse Rate [orthos tatic sitting Puls e Oximeter] Pulse Rate [orthos tatic standing Pul se Oximeter] Respiratory Rate Blood Pressure 108/40 L Blood Pressure [Ri ght Arm] Blood Pressure [Ri ght Upper Arm] Blood Pressure [or thostatic lying Ri ght Arm] Blood Pressure [or thostatic sitting Right Arm] Blood Pressure [or thostatic standing Right Arm] Pulse Oximetry 92 92 90 Oxygen Delivery Mn thod 05/29/22 20:33 05/29/22 20:34 05/29/22 20:45 Temperature Pulse Rate 84 102 H 94 Pulse Rate [Right Pulse Oximeter] Pulse Rate [orthos tatic lying Pulse Oximeter] Pulse Rate [orthos tatic sitting Puls e Oximeter] Pulse Rate [orthos tatic standing Pul se Oximeter] Respiratory Rate Blood Pressure 107/93 H Blood Pressure [Ri ght Arm] Blood Pressure [Ri ght Upper Arm] Blood Pressure [or thostatic lying Ri ght Arm] Blood Pressure [or thostatic sitting Right Arm] Blood Pressure [or thostatic standing Right Arm] Pulse Oximetry 92 90 90 Oxygen Delivery Me thod 05/29/22 21:00 05/29/22 21:02 05/29/22 21:15 Temperature Pulse Rate 93 79 92 Pulse Rate [Right Pulse Oximeter] Pulse Rate [orthos tatic lying Pulse Oximeter] Pulse Rate [orthos tatic sitting Puls e Oximeter] Pulse Rate [orthos tatic standing Pul se Oximeter] Respiratory Rate Blood Pressure 110/77 Blood Pressure [Ri ght Arm] Blood Pressure [Ri ght Upper Arm] Blood Pressure [or thostatic lying Ri ght Arm] Blood Pressure [or thostatic sitting Right Arm] Blood Pressure [or thostatic standing Right Arm] Pulse Oximetry 92 95 91 Oxygen Delivery Me thod 05/29/22 21:30 05/29/22 21:34 05/29/22 22:00 Temperature Pulse Rate 87 94 101 H Pulse Rate [Right Pulse Oximeter] Pulse Rate [orthos tatic lying Pulse Oximeter] Pulse Rate [orthos tatic sitting Puls e Oximeter] Pulse Rate [orthos tatic standing Pul se Oximeter] Respiratory Rate Blood Pressure 127/89 Blood Pressure [Ri ght Arm] Blood Pressure [Ri ght Upper Arm] Blood Pressure [or thostatic lying Ri ght Arm] Blood Pressure [or thostatic sitting Right Arm] Blood Pressure [or thostatic standing Right Arm] Pulse Oximetry 94 91 91 Oxygen Delivery Me thod 05/29/22 22:03 05/29/22 22:39 05/29/22 22:56 Temperature 97.7 F Pulse Rate 95 Pulse Rate [Right Pulse Oximeter] 93 Pulse Rate [orthos tatic lying Pulse Oximeter] Pulse Rate [orthos tatic sitting Puls e Oximeter] Pulse Rate [orthos tatic standing Pul se Oximeter] Respiratory Rate 22 22 Blood Pressure 136/116 H Blood Pressure [Ri ght Arm] 135/96 H Blood Pressure [Ri ght Upper Arm] Blood Pressure [or thostatic lying Ri ght Arm] Blood Pressure [or thostatic sitting Right Arm] Blood Pressure [or thostatic standing Right Arm] Pulse Oximetry 88 95 95 Oxygen Delivery Me thod Room Air Room Air 05/29/22 22:39 05/29/22 22:39 05/29/22 22:39 Temperature 97.7 F Pulse Rate 85 Pulse Rate [Right Pulse Oximeter] Pulse Rate [orthos tatic lying Pulse Oximeter] Pulse Rate [orthos tatic sitting Puls e Oximeter] Pulse Rate [orthos tatic standing Pul se Oximeter] Respiratory Rate 20 20 Blood Pressure Blood Pressure [Ri ght Arm] 135/96 H Blood Pressure [Ri ght Upper Arm] Blood Pressure [or thostatic lying Ri ght Arm] Blood Pressure [or thostatic sitting Right Arm] Blood Pressure [or thostatic standing Right Arm] Pulse Oximetry 93 93 Oxygen Delivery Me thod Room Air Room Air 05/29/22 22:41 05/29/22 23:00 05/30/22 02:58 Temperature 98 F Pulse Rate Pulse Rate [Right Pulse Oximeter] 93 83 Pulse Rate [orthos tatic lying Pulse Oximeter] Pulse Rate [orthos tatic sitting Puls e Oximeter] Pulse Rate [orthos tatic standing Pul se Oximeter] Respiratory Rate 20 20 Blood Pressure Blood Pressure [Ri ght Arm] 107/88 Blood Pressure [Ri ght Upper Arm] Blood Pressure [or thostatic lying Ri ght Arm] Blood Pressure [or thostatic sitting Right Arm] Blood Pressure [or thostatic standing Right Arm] Pulse Oximetry 93 93 Oxygen Delivery Me thod Room Air 05/30/22 06:55 Temperature Pulse Rate Pulse Rate [Right Pulse Oximeter] Pulse Rate [orthos tatic lying Pulse Oximeter] 80 Pulse Rate [orthos tatic sitting Puls e Oximeter] 89 Pulse Rate [orthos tatic standing Pul se Oximeter] 86 Respiratory Rate Blood Pressure Blood Pressure [Ri ght Arm] Blood Pressure [Ri ght Upper Arm] Blood Pressure [or thostatic lying Ri ght Arm] 113/70 Blood Pressure [or thostatic sitting Right Arm] 97/77 Blood Pressure [or thostatic standing Right Arm] 98/81 Pulse Oximetry Oxygen Delivery Me thod Labs Labs: Laboratory Results - last 24 hr 05/29/22 05/29/22 05/29/22 17:35 17:35 17:35 WBC 9.66 RBC 4.95 Hgb 15.1 Hct 44.8 MCV 91 MCH 31 MCHC 34 RDW Coeff of Jennifer 13.2 Plt Count 260 Neut % (Auto) 76.6 H Lymph % (Auto) 11.8 L [place] % (Auto) 10.4 Eos % (Auto) 0.9 Baso % (Auto) 0.1 Neut # (Auto) 7.40 H Lymph # (Auto) 1.10 [place] # (Auto) 1.00 H Eos # (Auto) 0.09 Baso # (Auto) 0.01 VBG pH VBG pCO2 VBG pO2 VBG HCO3 Sodium 137 Potassium 4.3 Chloride 105 Carbon Dioxide 22 BUN 20 Creatinine 0.9 Estimated Creat Clear 65.90 Estimated GFR 89 Glucose 138 H Calcium 9.6 Magnesium 1.9 Total Bilirubin 0.8 AST 24 ALT 23 Alkaline Phosphatase 87 Troponin I NT-Pro-B Natriuret Pep 1220 Total Protein 7.8 Albumin 4.5 TSH SARS-CoV-2 (PCR) Negative SARS-CoV-2 Influenza Type A (PCR) Negative PCR FLU A Influenza Type B (PCR) Negative PCR FLU B RSV (PCR) Negative PCR RSV POC Troponin I 05/29/22 05/30/22 05/30/22 17:35 06:20 06:20 WBC RBC Hgb Hct MCV MCH MCHC RDW Coeff of Jennifer Plt Count Neut % (Auto) Lymph % (Auto) [place] % (Auto) Eos % (Auto) Baso % (Auto) Neut # (Auto) Lymph # (Auto) [place] # (Auto) Eos # (Auto) Baso # (Auto) VBG pH VBG pCO2 VBG pO2 VBG HCO3 Sodium 137 Potassium 4.3 Chloride 105 Carbon Dioxide 26 BUN 16 Creatinine 0.8 Estimated Creat Clear 65.90 Estimated GFR 92 Glucose 157 H Calcium 9.0 Magnesium Total Bilirubin AST ALT Alkaline Phosphatase Troponin I < 0.01 L NT-Pro-B Natriuret Pep 1050 Total Protein Albumin TSH 0.867 SARS-CoV-2 (PCR) Influenza Type A (PCR) Influenza Type B (PCR) RSV (PCR) POC Troponin I 0.01 05/30/22 06:20 WBC RBC Hgb Hct MCV MCH MCHC RDW Coeff of Jennifer Plt Count Neut % (Auto) Lymph % (Auto) [place] % (Auto) Eos % (Auto) Baso % (Auto) Neut # (Auto) Lymph # (Auto) [place] # (Auto) Eos # (Auto) Baso # (Auto) VBG pH 7.407 VBG pCO2 43 VBG pO2 43.9 VBG HCO3 27 Sodium Potassium Chloride Carbon Dioxide BUN Creatinine Estimated Creat Clear Estimated GFR Glucose Calcium Magnesium Total Bilirubin AST ALT Alkaline Phosphatase Troponin I NT-Pro-B Natriuret Pep Total Protein Albumin TSH SARS-CoV-2 (PCR) Influenza Type A (PCR) Influenza Type B (PCR) RSV (PCR) POC Troponin I
[2022-05-30] MEDS: LACTATED RINGERS 1000 ML 500 ML IV (13:46)
[2022-05-30] MEDS: METOPROLOL SUCCINATE (XL) 50 MG TAB PO (14:59)
--- NOTE | 2022-05-30 18:56 | PC.NURSE ---
End of shift note: [id number] Pt. Alert and oriented, pleasant and cooperative. Pt ambulates independently. VSS, RA, Tele A-fib w/RVR. Pt. denies any pain, N/V/SOB. Pt. tolerating a reg. low fat diet. Pt. on continuous pulse. IV in left wrist, SL.
[2022-05-30] MEDS: SODIUM CHLORIDE 0.9 % (FLUSH) 10 ML SYRINGE 5 ML IVF (21:54)
[2022-05-31] VITALS (9 sets, daily range): BP systolic 104–114; BP diastolic 68–87; PULSE 73–91; RESP 20; TEMP 36.4–36.9; O2SAT 90–95
--- NOTE | 2022-05-31 05:26 | PC.NURSE ---
[id number]: Patient pleasant and cooperative. Denies pain. Independent in room. Tele reading a-fib w/NSR majority of shift changing to a-fib w/RVR for brief periods of time. Eating and voiding. Eagerly awaiting d/c today. Appeared to rest well during noc.
[2022-05-31] MEDS: METOPROLOL TARTRATE 25 MG TABLET PO ×2 (08:09→23:21)
[2022-05-31] MEDS: METFORMIN ER 500 MG 1000 MG PO (08:58)
[2022-05-31] MEDS: METOPROLOL TARTRATE 50 MG TABLET PO (08:59)
[2022-05-31] MEDS: RIVAROXABAN 10 MG TABLET 20 MG PO (08:59)
--- NOTE | 2022-05-31 16:57 | P.IMPN_ITS ---
Progress Note: A&P Assessment and plan (1) Atrial fibrillation with rapid ventricular response: Problem details: 2014; has been cardioverted twice in the past. ECHO 05/30/22 prelim unchanged from 2019. He is on xarelto (but takes it QOD secondary to nose bleeds and bruising). Status: Acute (2) Hypertension: Problem details: LOW BP - holding losartan. 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 on orals. Status: Acute (5) Obstructive sleep apnea syndrome: Problem details: Did not tolerate CPAP Status: Acute (6) Morbid obesity with body mass index (BMI) of 40.0 to 44.9 in adult: Problem details: BMI 43. Status: Acute Plan 77-year-old male with atrial fibrillation with rapid ventricular rate. Due to ongoing difficulty controlling rate, I have transitioned him over to short- acting metoprolol and will schedule this for 75 mg twice a day. Losartan is on hold to allow for higher blood pressures to treat with rate control medications. We appear to having more success today with metoprolol short-acting and I anticipate he will likely be stable enough to discharge home tomorrow if he remains rate controlled on metoprolol tartrate 75 mg twice a day overnight. Subjective Time Seen by Provider: 10:00 Date Seen: 05/31/22 Interval history: Ankur had some elevated heart rates overnight with activity. This morning his heart rate was 158 while he was adjusting his gown in bed. He denied any complaints, but did not want to be here anymore. He stated that he was going to go home and was sick of being in a gown with all the wires attached. I recommended that he stay for further adjustment of metoprolol, noting that his heart rate was still not well controlled. We discussed the risks of leaving AMA, which included elevated heart rate, dizziness, chest pain and discomfort, falls, syncope, myocardial infarction, and . He later spoke with his daughter who convinced him to stay. Exam Narrative: Exam Narrative: General: No acute distress. Awake, alert, oriented x3. No pallor. No jaundice. Obese. Cardiovascular: Irregularly irregular, tachycardic. No murmurs, gallops, or rubs. Respiratory: Clear to auscultation bilaterally. No wheezes or crackles. Abdomen: Bowel sounds present. Soft, nondistended, nontender. Extremities: No pedal edema. Const: Vital Signs, click to edit/add: Vital Signs - 24 hr 05/30/22 22:39 05/31/22 03:00 05/31/22 07:00 Temperature 98.5 F Pulse Rate 91 Pulse Rate [Right Pulse Oximeter] 78 74 Respiratory Rate 20 20 Blood Pressure [Ri ght Arm] 109/78 Pulse Oximetry 92 Oxygen Delivery Me thod Room Air 05/31/22 07:00 05/31/22 11:00 05/30/22 19:00 Temperature 97.6 F 97.6 F 98.1 F Pulse Rate Pulse Rate [Right Pulse Oximeter] 74 79 85 Respiratory Rate 20 20 20 Blood Pressure [Ri ght Arm] 107/84 104/74 120/79 Pulse Oximetry 92 95 94 Oxygen Delivery Me thod Room Air Room Air Room Air 05/30/22 22:04 05/30/22 22:04 Temperature 97.9 F Pulse Rate Pulse Rate [Right Pulse Oximeter] 84 Respiratory Rate 22 Blood Pressure [Ri ght Arm] 116/85 Pulse Oximetry 94 92 Oxygen Delivery Me thod Room Air
--- NOTE | 2022-05-31 18:37 | PC.NURSE ---
End of shift note: [id number] Pt. Alert and oriented, pleasant and cooperative. Pt ambulates independently. VSS, RA, Tele A-fib. Pt. denies any pain, N/V/SOB. Pt. tolerating a reg. low fat diet. IV in left wrist, SL. Plan: discharge to home tomorrow.
[2022-05-31] MEDS: SODIUM CHLORIDE 0.9 % (FLUSH) 10 ML SYRINGE 5 ML IVF (21:06)
[2022-05-31] MEDS: METOPROLOL TARTRATE 25 MG TABLET 75 MG PO (21:06)
--- NOTE | 2022-06-01 05:32 | PC.NURSE ---
[id number]: Patient pleasant and cooperative. Denies pain. Independent in room. PRN Metoprolol given at 2330 for increased HR of 90-120 per MD. HR since 0100 has remained in 70-80's. Eating and voiding.
[2022-06-01 06:00] VITALS: BP 110/79; PULSE 75; RESP 20; TEMP 36.7; O2SAT 92
[2022-06-01 07:00] VITALS: BP 120/96; PULSE 86; RESP 20; TEMP 36.4; O2SAT 93
[2022-06-01] MEDS: RIVAROXABAN 10 MG TABLET 20 MG PO (09:24)
[2022-06-01] MEDS: METFORMIN ER 500 MG 1000 MG PO (09:24)
[2022-06-01] MEDS: METOPROLOL TARTRATE 25 MG TABLET 75 MG PO (09:24)
--- NOTE | 2022-06-01 12:52 | PC.NURSE ---
Discharge: Pt. Alert and oriented, pleasant and cooperative. Pt ambulates independently in Room and hallway. VSS, RA, Tele A-fib. Pt. denies any pain, N/V/SOB. Pt. tolerating a reg. low fat diet. HR stays in the 80-90 range this morning. BP are better and WNL. Pt's IV removed from left wrist intact. Discharged at 1115, ambulated to car, accompanied by spouse and granddaughter. Discharge instructions given and signed, pt. verbalized understanding.
== END 2022-06-01 11:15 | disposition home or self-care (01) | DRG 309 ==
LOC: ED 21:05 → MEDSURG 22:19
PROVIDERS: Family Medicine; Admitting Provider Internal Medicine; Emergency Provider Family Medicine; PCP Family Medicine; Visit Provider Internal Medicine
DX: I48.91 Unspecified atrial fibrillation (principal); J98.11 Atelectasis; K50.90 Crohn's disease, unspecified, without complications; Z68.41 Body mass index [BMI] 40.0-44.9, adult; Q25.49 Other congenital malformations of aorta; I95.9 Hypotension, unspecified; I77.819 Aortic ectasia, unspecified site; E66.01 Morbid (severe) obesity due to excess calories; E13.9 Other specified diabetes mellitus without complications; I10 Essential (primary) hypertension; G47.33 Obstructive sleep apnea (adult) (pediatric); Z86.79 Personal history of other diseases of the circulatory system; Z79.01 Long term (current) use of anticoagulants; Z79.84 Long term (current) use of oral hypoglycemic drugs; I51.7 Cardiomegaly; R05.9 Cough, unspecified; R06.02 Shortness of breath; Z98.890 Other specified postprocedural states; Z87.891 Personal history of nicotine dependence; I45.10 Unspecified right bundle-branch block; I70.0 Atherosclerosis of aorta; Z80.0 Family history of malignant neoplasm of digestive organs; Z87.898 Personal history of other specified conditions
CPT/HCPCS: 36415; 71045; 80048; 80053; 82803; 82962; 83735; 83880; 84443; 84484; 85025; 87502; 87634; 87635; 93005; 93306; 94761; 97161; 97165; 97535; 99285; 99291; G0378; A9270; G0379; J7120

== ENCOUNTER 2023-04-08 10:09 | Outpatient (CLI) | payer OTHER, SELFPAY | END 2023-04-08 10:10 | disposition home or self-care (01) | PROVIDERS: PCP Family Medicine; Visit Provider Family Medicine | DX: I10 Essential (primary) hypertension (principal); Z13.6 Encounter for screening for cardiovascular disorders; Z12.5 Encounter for screening for malignant neoplasm of prostate | CPT/HCPCS: 80061; 84153 ==

== ENCOUNTER 2023-07-28 14:03 | Outpatient (CLI) | payer MEDICARE, SELFPAY | END 2023-07-28 14:04 | disposition home or self-care (01) | LOC: LKVREF 14:08 | PROVIDERS: PCP Family Medicine; Visit Provider Family Medicine | DX: Z13.89 Encounter for screening for other disorder (principal) | CPT/HCPCS: 81292; 81294; 81295; 81297; 81298; 81300; 81317; 81319; 81403 ==

== ENCOUNTER 2023-10-12 09:34 | Outpatient (CLI) | payer MEDICARE, SELFPAY | END 2023-10-12 09:35 | disposition home or self-care (01) | LOC: LKVREF 09:34 | PROVIDERS: PCP Family Medicine; Visit Provider Family Medicine | DX: E13.9 Other specified diabetes mellitus without complications (principal); I10 Essential (primary) hypertension | CPT/HCPCS: 80048 ==

== ENCOUNTER 2024-02-29 19:31 | Emergency (ER) | payer MEDICARE, SELFPAY ==
[2024-02-29 19:46] VITALS: BP 105/69; PULSE 89; RESP 20; TEMP 36.7; O2SAT 96; BMI 43.0
[2024-02-29 20:11] LABS: Appearance Urine Clear (Clear); Bilirubin Urine Negative (Negative); Blood Urine 1+ (Negative); Color Urine Yellow (Yellow); Glucose Urine 2+ (Negative); Ketones Urine Negative (Negative); Leukocyte Esterase Urine Negative (Negative); Nitrite Urine Negative (Negative); Protein Urine Negative (Negative); Specific Gravity Urine 1.015 (1.000-1.030); Urobilinogen Urine 0.2 (0.2-1.0); pH Urine 5.5 (5.0-8.5)
--- NOTE | 2024-02-29 20:21 | ED.GENADULT ---
HPI - General Adult General Chief complaint: Urogenital Problems, Male Stated complaint: swollen penis Time Seen by Provider: 02/29/24 20:02 Source: patient Mode of arrival: ambulatory Limitations: no limitations History of Present Illness HPI narrative: 78-year-old male presents the emergency department on a busy Thursday night for evaluation of swelling of the foreskin. No difficulty urinating. No fever. No dysuria. No abdominal pain. No difficulty eating or weakness. Initial tenderness and then progressing to a little bit of redness and swelling on the head of the penis and now to the foreskin. Hurts to retract the foreskin. No prior history of similar symptoms. Tried applying some antibiotic ointment for the last few days with no improvement. Has not tried to be evaluated in urgent care or by his primary care team for this condition. Does not believe he has had previous similar symptoms. Past medical history notable for AFib, obstructive sleep apnea, obesity, hypertension and diabetes. He is anticoagulated and uses multiple oral agents to treat his diabetes, reports no recent changes in medications. ROS is notable for the symptoms as above, otherwise denies any does her generalized, abdominal, urinary, musculoskeletal changes. Related Data Home Medications ?Medication ?Instructions ?Recorded ?Confirmed budesonide 180 mcg/actuation 2 inh inhalation BID 04/07/22 10/12/23 breath activated powder inhaler mesalamine 400 mg capsule (with 1,200 mg PO BID 04/07/22 10/12/23 delayed release tablets inside) Previous Rx's ?Medication ?Instructions ?Recorded methocarbamol 500 mg tablet 500 mg PO QID PRN back pain #40 12/24/22 tabs tramadol 50 mg tablet 50 - 100 mg (1 - 2 x 50 mg) PO Q6H 12/24/22 PRN pain #60 tabs albuterol sulfate 90 mcg/actuation 2 puff inhalation Q6H PRN 04/08/23 aerosol inhaler shortness of breath or wheezing #8.5 grams metformin 500 mg tablet,extended 1,000 mg (2 x 500 mg) PO QDAY #180 04/08/23 release 24 hr tabs metoprolol tartrate 100 mg tablet 100 mg PO BID #180 tabs 04/08/23 rivaroxaban 20 mg tablet 20 mg PO DAILY #90 tabs 04/08/23 empagliflozin 25 mg tablet 25 mg PO QAM #30 tabs 11/03/23 (Jardiance) glipizide 10 mg tablet, extended 10 mg PO BID #180 tabs 12/11/23 release 24 hr losartan 25 mg tablet 25 mg PO DAILY #90 tabs 02/24/24 rosuvastatin 40 mg tablet 40 mg PO DAILY #90 tabs 02/24/24 doxycycline hyclate 100 mg capsule 100 mg PO BID #10 caps 02/29/24 fluconazole 200 mg tablet 200 mg PO DIRECTED #2 tabs 02/29/24 (Diflucan) nystatin 100,000 unit/gram topical 1 applic topical BID #30 grams 02/29/24 ointment Allergies Allergy/AdvReac Type Severity Reaction Status Date / Time No Known Allergies Allergy Unknown Verified 10/12/23 09:02 [facility] Surgical History History of umbilical hernia repair ?Z98.890 - Other specified postprocedural states (ICD-10) ?Z87.19 - Personal history of other diseases of the digestive system (ICD-10) Family History Other Colon cancer Prostate cancer Social History What is your current living situation?: I presently have a place to live Problems where you live: no known problems In the past 12 months, utilities in danger of being shut off: no In past 12 months, lack of transportation kept you from medical appts, meetings, work, or getting things needed for daily living: no In the past 12 mos, have been you worried that your food would run out before you had money to buy more?: never true In the past 12 mos, the food you bought just didn't last and you didn't have money to buy more?: never true Highest level of school completed/degree received: high school graduate Smoking Status: Former smoker Do you use any of these nicotine containing products: None Second hand tobacco smoke exposure: No How often do you have a drink containing alcohol: never How often do you have six or more drinks on one occasion: Never AUDIT-C Alcohol total score: 0 Non-prescribed substance use: denies use Caffeine: Yes How often does anyone, including family, friends and others, physically hurt you: never How often does anyone, including family, friends and others, insult or talk down to you: never How often does anyone, including family, friends and others, threaten you with harm: never How often does anyone, including family, friends and others, scream or curse at you: never Little interest or pleasure in doing things: not at all Feeling down, depressed, or hopeless: not at all service: Yes Exam Const: Vital Signs, click to edit/add: Vital Signs - 24 hr 02/29/24 19:46 Temperature 98.1 F Pulse Rate [Pulse Oximeter] 89 Respiratory Rate 20 Blood Pressure [Ri ght Upper Arm] 105/69 Pulse Oximetry 96 Oxygen Delivery Me thod Room Air Documenting provider has reviewed patient's vital signs: yes Common normals: no apparent distress General appearance: cooperative and well kempt Eye: Common normals: conjunctivae normal General eye: normal appearance of both eyes Conjunctiva: conjunctiva(e) normal Resp: Common normals: normal respiratory effort Effort & inspection: able to speak in complete sentences GI: Inspection: normal to inspection Other: Protuberant but no unusual swelling. Skin and umbilicus appear normal. No obvious visible hernias. : Other: Scrotum appears normal, testes appear descended bilaterally. Foreskin and head of the penis with slight watery discharge, slight redness and yeasty appearance consistent with balanitis. Foreskin can retract but is quite tender to do so. I can move the 1 cm opening around and see the head of the penis and the urethral meatus appears mildly irritated but no significant severe redness, swelling or signs of bacterial infection. No evidence of foreign body. The redness is isolated to just the 1 cm area around the foreskin opening, does not track down the shaft of the penis or around the lower foreskin. Extremity: Common normals: normal to inspection and normal capillary refill Psych: Appearance: well kempt Attitude: engaged Activity/motor behavior: appropriate eye contact Mood and affect: euthymic mood Skin: Common normals: no rashes or lesions noted General skin exam: no rashes or lesions noted Course Course ED Course: Counseled patient on findings, peers consistent with balanitis. There does not seem to be an overwhelming extensive cellulitis. He does not have a fever, unstable vitals difficulty urinating or other abnormality. Will perform a urinalysis. Will start Diflucan 200 mg p.o. x1, repeated every 3 days x3. Nystatin and hydrocortisone mixed x1 here in the ED with brought application. Will then transition to nystatin only b.i.d. for the next week. High risk of secondary bacterial infection, will give 5 days of doxycycline at 100 mg b.i.d., 1st dose given here in the ED. alarm symptoms reviewed that would warrant ED presentation. Primary care team follow-up if not starting to improve in 3-4 days. Patient verbalizes understanding and agreement. Written instructions provided. Vital Signs Vital signs: Initial Vital Signs Temperature 98.1 F 02/29/24 19:46 Temperature Source Temporal Artery Scan 02/29/24 19:46 Pulse Rate 89 02/29/24 19:46 Respiratory Rate 20 02/29/24 19:46 Blood Pressure 105/69 02/29/24 19:46 Blood Pressure Mean 81 02/29/24 19:46 Blood Pressure Position Sitting 02/29/24 19:46 Pulse Oximetry 96 02/29/24 19:46 Oxygen Delivery Method Room Air 02/29/24 19:46 Vital Signs Temperature 98.1 F 02/29/24 19:46 Pulse Rate 89 02/29/24 19:46 Respiratory Rate 20 02/29/24 19:46 Blood Pressure 105/69 02/29/24 19:46 Pulse Oximetry 96 02/29/24 19:46 Oxygen Delivery Method Room Air 02/29/24 19:46 Temperature 98.1 F 02/29/24 19:46 Pulse Rate 89 02/29/24 19:46 Respiratory Rate 20 02/29/24 19:46 Blood Pressure 105/69 02/29/24 19:46 Pulse Oximetry 96 02/29/24 19:46 Oxygen Delivery Method Room Air 02/29/24 19:46 Discharge Plan Discharge Clinical Impression: Balanitis Patient Disposition: Home w/ Parent or Adult Condition: Stable Instructions: Balanitis (ED) Additional Instructions: As we discussed, the infection of the foreskin and tip of the penis likely started as a yeast infection. This is very common, known as balanitis. Diabetics are more prone to getting this. The mainstay of treatment is treating the underlying yeast infection. You were given a dose of Diflucan here in the emergency department. This is a yeast pill and it is only dosed every 3 days. You will repeat the dose on night before bed and then again on Thursday night. Because of the diabetes, you have a higher risk of secondary bacterial infection as well. We will also place you on an antibiotic to treat a potential bacterial infection twice daily for the next 5 days. We have started you on a cream to apply to the top and under the foreskin as able. This should help treat and soothe the skin while it is healing from the yeast infection. Try to apply the cream for the next 7 days. I left refills on this cream for you to refill if needed. It is okay to tile picker this cream and try using it if you have a return of symptoms in the future. Using it early in the process will markedly decrease the chance of this infection festering like it has done today. Things should be markedly better within about 3-4 days. If things are not improving by the end of the week, please make a follow-up appointment with your primary care provider. Activity Level: No Restrictions Discharge Diet: Regular Prescriptions: New doxycycline hyclate 100 mg capsule 100 mg PO BID Qty: 10 0RF fluconazole [Diflucan] 200 mg tablet 200 mg PO DIRECTED Qty: 2 0RF Rx Instructions: 1 pill by mouth on night, repeat on Thursday night. nystatin 100,000 unit/gram ointment 1 applic topical BID Qty: 30 2RF No Action mesalamine 400 mg capsule (with del rel tablets) 1,200 mg PO BID budesonide 180 mcg/actuation aerosol powdr breath activated 2 inh inhalation BID methocarbamol 500 mg tablet 500 mg PO QID PRN (Reason: back pain) Qty: 40 1RF tramadol 50 mg tablet 50 - 100 mg PO Q6H PRN (Reason: pain) Qty: 60 1RF albuterol sulfate 90 mcg/actuation HFA aerosol inhaler 2 puff inhalation Q6H PRN (Reason: shortness of breath or wheezing) Qty: 8.5 2RF metformin 500 mg tablet extended release 24 hr 1,000 mg PO QDAY Qty: 180 3RF metoprolol tartrate 100 mg tablet 100 mg PO BID Qty: 180 3RF rivaroxaban 20 mg tablet 20 mg PO DAILY Qty: 90 3RF Rx Instructions: WITH MEAL Jardiance 25 mg tablet 25 mg PO QAM Qty: 30 3RF glipizide 10 mg tablet extended release 24hr 10 mg PO BID Qty: 180 0RF losartan 25 mg tablet 25 mg PO DAILY Qty: 90 0RF rosuvastatin 40 mg tablet 40 mg PO DAILY Qty: 90 0RF Follow Up/Referrals: John Chavis MD [Primary Care Provider] - Stand Alone Forms: [facility], [place] Info Instructions
[2024-02-29 20:22] LABS: Bacteria Urine Few; RBC Urine 0-2 (0-2)
[2024-02-29] MEDS: NYSTATIN CREAM 30 GM 1 APPLIC TOPICAL (20:28)
[2024-02-29] MEDS: HYDROCORTISONE 1 % CREAM 1 APPLIC TOPICAL (20:28)
[2024-02-29] MEDS: DOXYCYCLINE HYCLATE 100 MG PO (20:28)
[2024-02-29] MEDS: FLUCONAZOLE 100 MG TABLET 200 MG PO (20:28)
== END 2024-02-29 20:40 | disposition home or self-care (01) ==
LOC: ED 20:26
PROVIDERS: Emergency Provider Family Medicine; PCP Family Medicine
DX: N48.1 Balanitis (principal)
CPT/HCPCS: 81001; 81003; 87086; 87186; 99283; A9270

== ENCOUNTER 2024-04-11 10:51 | Outpatient (CLI) | payer MEDICARE, SELFPAY | END 2024-04-11 10:52 | disposition home or self-care (01) | PROVIDERS: PCP Family Medicine; Visit Provider Family Medicine | DX: I10 Essential (primary) hypertension (principal); E78.5 Hyperlipidemia, unspecified; Z12.5 Encounter for screening for malignant neoplasm of prostate | CPT/HCPCS: 80048; 80061; G0103 ==

== ENCOUNTER 2024-06-04 13:45 | Emergency (ER) | payer MEDICARE, SELFPAY ==
--- OUTSIDE RECORDS SUMMARY | 2024-06-04 13:46 | XMS_ITS | Clinical Summary ---
[facility] Address [address] [place] [address] Care Team Providers Care Print Producer Name Role Phone Jessee Chavis MD Primary Care Provider [phone] Source Comments You are receiving this document as you are listed as the primary care provider,follow-up provider, or the patient has been referred to you for consultation.This is in compliance with the Medicare andMedicaid EHR Incentive Program,which states Providers who transition their patient to another setting of careor provider of care or refers their patient to another provider of care shouldprovide summary care record for each transition of care or referral. [facility] Allerg[facility] No known active allergies Medications Medication Sig Dispensed Refills Start Date End Date Status XARELTO 20 MG tablet Take 1 Tablet (20 mg) by mouth daily. 03/26/2019 Active azaTHIOprine (IMURAN) 50 MG tablet Take 1 Tablet (50 mg) by mouth daily. 02/11/2010 Active ALBUterol sulfate HFA 108 (90 Base) MCG/ACT inhaler Inhale 1-2 Puffs every 4 hours as needed for Wheezing. Active losartan (COZAAR) 25 MG tablet Take by mouth every 24 hours. 09/02/2022 Active metoprolol tartrate (LOPRESSOR) 100 MG tablet Take 1 Tablet (100 mg) by mouth two times a day. Active rosuvastatin (CRESTOR) 40 MG tablet Take by mouth every 24 hours. 09/02/2022 Active mesalamine (LIALDA) 1.2 g enteric coated tablet Take 4 Tablets (4.8 g) by mouth daily. 12/02/2022 Active metFORMIN XR (GLUCOPHAGE XR) 500 MG 24 hour release tablet Take 2 Tablets (1,000 mg) by mouth daily. 01/31/2023 Active traMADol (ULTRAM) 50 MG tablet Take 1 Tablet (50 mg) by mouth every 6 hours as needed for Pain. 12/24/2022 Active Active Problems Problem Noted Date Diagnosed Date Obstructive sleep apnea on CPAP 04/07/2019 Overview (07/21/2019): Severe JUSTICE Setting: APAP 8-15 (FFM) Supplied by: [facility] PSG done: 04/24/15 [place] AHI 87 RDI 89 Lowest O2 Sat: 85% Debbie/[place] 04/07/19 new; 05/23/19 cmn/FFM, Renew-Compliant 07/21/2019 CPAP at 10-11 cm h2O felt most effective but no REM supine on those settings. Atrial fibrillation with rapid ventricular respo nse 04/07/2019 Crohn's disease of colon without complication Hypertension, essential 04/07/2019 Immunizations Name Administration Dates Next Due Influenza IIV4 (Quadrivalent ) Fluad, 65+ Yrs 03/28/2021 Pfizer Monovalent 12+ Purple Top 03/28/2021,07/23,07/14/2020 Social History Tobacco Use Types Packs/Day Years Used Date Smoking Tobacco: Former Cigarettes 2 30 1 06/07/1960 - 04/07/1991 Smokeless Tobacco: Former Tobacco Cessation:Counseling Given: Not Answered Alcohol Use Standard Drinks/Week Comments Not Currently 0 (1 standard drink = 0.6 oz pur e alcohol) Quit 1973 Sex and Gender Information Value Date Recorded Sex Assigned at Not on file Gender Identity Not on file Sexual Orientation Not on file Last Filed Vital Signs Vital Sign Reading Time Taken Comments Blood Pressure 121/89 03/24/2023 1:01 PM CDT Pulse 83 03/24/2023 1:01 PM CDT Temperature 36.3 C (97.3 F) 12/04/2022 11:34 AM CDT Respiratory Rate - - Oxygen Saturation 95% 07/21/2019 10:44 AM CONSUMER SERVICES ADVISOR Inhaled Oxygen Concentration - - Weight 139.5 kg (307 lb 8 oz) 03/24/2023 1:01 PM CDT Height 177.8 cm (5' 10) 11/17/2022 6:57 PM CDT Body Mass Index 44.12 11/17/2022 6:57 PM CDT Plan of Treatment Health Maintenance Due Date Last Done Comments RSV (1 - 1-dose 75+ series) 2022 COVID-19 Vaccine (5 - season) 2024 2022, 03/28/2021, 08/04/2020, Additional history exists Influenza (#1) 2024 03/28/2021 Medicare Annual Wellness Visit 05/25/2024 DTaP/Tdap/Td (3 - Tdap) 10/01/2028 10/01/2018, 11/08 Pneumococcal 65+ Yrs Completed 10/01/2018, 05/04/20 15 Zoster/Shingles Completed 07/03/2022, 2022 HepA Aged Out 09/24/2022, 12/2021, 02/19/2022 No longer eligible based on patient's age to complete this topic Hep C Screening (Preventive Services) Completed 03/24/2023 HepB Aged Out No longer eligi ble based on patient's age to complete this topic Hib Aged Out No longer eligi ble based on patient's age to complete this topic IPV (Polio) Aged Out No longer eligi ble based on patient's age to complete this topic MCV4 Aged Out No longer eligi ble based on patient's age to complete this topic Procedures Procedure Name Priority Date/Time Associated Diagnosis Comments HEPATITIS C ANTIBODY, WITH REFLEX Routine 03/24/2023 2:03 PM CDT High risk medication use from Last 3 Months or Most Recently Relevant to Health Maintenance Results * Hepatitis C Antibody, with Reflex (03/24/2023 2:03 PM CDT) Hepatitis C Antibody Negative (Non Reactive) Negative (Non Reactive) 03/24/2023 9:09 PM CDT [facility] Comment:Antibodies to HCV no t detected. Does not exclude the possiblity of exposure to HCV. Blood Venipuncture / Unknown 03/24/2023 2:03 PM CDT 03/24/2023 2:03 PM CDT Mango Hyde DO LAB_1 [facility] [address] [place] [address], [facility] from Last 3 Months or Most Recently Relevant to Health Maintenance Care Teams Print Producer Relationship Specialty Start Date End Date Jessee Chavis MD [facility] [address] [place] [id number] PCP - General Family Practice 03/24/23
--- OUTSIDE RECORDS SUMMARY | 2024-06-04 13:46 | XMS_ITS | Continuity of Care Document ---
Author Name [facility] Organization [facility] Care Team Providers Care Meat And Seafood Manager Name Role Phone [facility] Unavailable Unavailable Problems Combined list of problems from Department of Defense and Veterans Affairs facilities. It does not include entries that were removed or entered in error. Problem Status Onset Date Problem Type Date of Resolution Comments Source Morbid obesity (SNOMED CT [id number]) Active Condition [facility] Social History Combined list of available smoking, tobacco, and other social history from Department of Defense and Veterans Affairs facilities. Social History Type Response Date Comment Sourc e Tobacco smoking status NHIS LIFETIME NON-TOBACCO USER 07/18/2013 [facility]
--- OUTSIDE RECORDS SUMMARY | 2024-06-04 13:46 | XMS_ITS | Continuity of Care Document ---
Author Name NwLESAN User [email or web address] Address Unknown Organization Unknown Address Unknown Procedures FILTER APPLIED:Only known Procedures with Onset Date within the last 5 years Procedure Date Procedure Provider Additional Inform ation Status METABOLIC PANEL TOTAL CA (92327) Completed MSH2 GENE FULL SEQ (55195) Completed PMS2 GENE DUP/DELET VARIANTS (17304) Completed MLH1 GENE FULL SEQ (89540) Completed MLH1 GENE DUP/DELETE VARIANT (63218) Completed MOPATH PROCEDURE LEVEL 4 (71060) Completed MSH2 GENE DUP/DELETE VARIANT (76812) Completed MSH6 GENE FULL SEQ (69064) Completed MSH6 GENE DUP/DELETE VARIANT (56988) Completed PMS2 GENE FULL SEQ ANALYSIS (31859) Completed LIPID PANEL (89028) Comp leted ASSAY OF PSA TOTAL (98373) Completed Encounters FILTER APPLIED:Only known Encounters with Admission Date within the last 5 years Encounter Location Admission Discharge Billing Code Electroplater Zhang [facility] Out[facility]
--- OUTSIDE RECORDS SUMMARY | 2024-06-04 13:46 | XMS_ITS | Clinical Summary ---
Author Organization [facility] Address [place], [place] [address] Care Team Providers Care Negative Cleaner Name Role Phone John Chavis MD Primary Care Provider [phone] Allergies Active Allergy Reactions Criticality Noted Date Comments Ciprofloxacin Other - Describe In Comment Field 09/02/2022 borderline thoracic aortic aneurysm Medications azaTHIOprine (IMURAN) 50 mg tablet Take 1 tablet by mouth 2 times daily. 0 0 Active mesalamine (LIALDA) 1.2 gram delayed-release tablet Take by mouth once daily. 2 Active rivaroxaban (XARELTO) 20 mg tablet Take 1 Tablet (20 mg) by mouth once daily with evening meal. 90 Tablet 3 3 Active metFORMIN (GLUCOPHAGE) 1,000 mg tablet Take 1 Tablet (1,000 mg) by mouth two times daily with meals. 0 3 Active metoprolol tartrate (LOPRESSOR) 100 mg tabletIndications:Pe rsistent atrial fibrillation (HC) Take 1 Tablet (100 mg) by mouth two times daily. 180 Tablet 3 3 Active Qtbxj-[id number]-EPA-Fish Oil (Fish OiL) 1,000 mg (120 mg-180 mg) capIndications:Contr olled type 2 diabetes mellitus without complication, without long-term current use of insulin (HC) Take 1 Capsule (1,000 mg) by mouth once daily. 0 3 Active rosuvastatin (CRESTOR) 40 mg tabletIndications:Dy slipidemia,Nonocclus radha coronary atherosclerosis of lime coronary artery Take 1 Tablet (40 mg) by mouth at bedtime. 90 Tablet 3 3 Active losartan (COZAAR) 25 mg tabletIndications:HT N (hypertension) Take 1 Tablet (25 mg) by mouth once daily. 90 Tablet 3 3 Active Active Problems Problem Noted Date Diagnosed Date Longstanding persistent atrial fibrillation 05/25 JUSTICE (obstructive sleep apnea) 06/11/2022 Controlled type 2 diabetes m ellitus without complication, without long-term current use of insulin 06/11/2022 Crohn disease ED (erectile dysfunction) Immunizations Name Administration Dates Next Due Tdap 11/09/2007 Family History Medical History Relation Name Comments Alcohol/Drug Brother 2 GI Disease Daughter Cancer Mother lung and colon Cancer-colon Mother Stroke Mother Genetic Other 1 hypertension-pa rents~diabetes-brother Genetic Other 2 hypertension-pa rents~diabetes-brother~cataracts - parent~macular degeneration - parent Cancer-colon Other 3 nephew Cancer-breast Sister 3 Cancer Sister 4 lung Alcohol/Drug Sister 5 Relation Name Status Comments Brother 1 Alive Brother 2 Daughter Father Mother Other 1 Other 2 Other 3 Sister 1 Sister 2 Sister 3 Sister 4 Sister 5 Social History Tobacco Use Types Packs/Day Years Used Date Smoking Tobacco: Former Cigarettes 2 29 0 05/25/1959 - 05/25/1988 Smokeless Tobacco: Former Quit: 05/25/1988 Tobacco Cessation:Counseling Given: Not Answered Comments:quit in 1988 Alcohol Use Standard Drinks/Week Comments No 0 (1 standard drink = 0.6 oz pur e alcohol) Sex and Gender Information Value Date Recorded Sex Assigned at Not on file Legal 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 Gender Identity Not on file Sexual Orientation Not on file Obstetrics History Last Filed Vital Signs Vital Sign Reading Time Taken Comments Blood Pressure 133/82 09/02/2022 10:29 AM CDT Pulse 71 09/02/2022 10:29 AM CDT Temperature 36.9 C (98.4 F) 10/25/2010 2:17 PM CDT Respiratory Rate 14 03/19/2012 1:03 PM CDT Oxygen Saturation 95% 09/02/2022 10:29 AM CDT Inhaled Oxygen Concentration - - Weight 143.3 kg (316 lb) 09/03/2022 10:14 AM CDT Height 177.8 cm (5' 10) 09/03/2022 10:14 AM CDT Body Mass Index 45.34 09/03/2022 10:14 AM CDT Plan of Treatment Health Maintenance Due Date Last Done Comments Depression screening for age 12+ 1959 Hepatitis C screening for ag e 18-79 1965 Pneumococcal series for age 50+ (1 of 2 - PCV) 1966 Zoster (shingles) series for age 50+ (1 of 2) 1966 Medicare Wellness for age 65+ 2012 Tetanus booster 11/08/2017 11/09/2007 RSV vaccine for adults or (1 - 1-dose 75+ series) 2022 BMI (ht and wt on same day) for age 18+ 09/04/2023 09/03/2022, 09/02/2022, 06/11/2022 COVID-19 vaccine series ( season) 2024 2022, 03/28/2021, 08/04/2020, Additional history exists Influenza for age 65+ 01/24/2024 Tdap Completed 11/09/2007 Medical Devices Implanted Type Area Beater Worker Helper Device Identifier Shelf Expiration Date Model / Serial / Lot Patch Ventralex Sm Cir W/Strap [id number] - [id number] Implanted:Qty: 1 on 04/05/2010 at [facility] N/A: Abdomen DAVOL 10/23/2014 [id number] / / [id number] Insurance [id number] [place] [id number] MEDICARE ADVANTAGE MR [place] JULIEN [id number] Advance Directives * Full Code (Latest Code Status on File) Date Activated Date Inactivated Comments 04/05/2010 6:10 AM 04/05/2010 11:02 AM Care Teams Negative Cleaner Relationship Specialty Start Date End Date John Chavis MD PCP - General Family Practice 06/11/22
[2024-06-04 13:59] VITALS: BP 113/76; PULSE 63; RESP 18; TEMP 36.2; O2SAT 96; BMI 43.0
--- NOTE | 2024-06-04 14:33 | CRLHL7_ITS ---
For Patients: As a result of the Century Cures Act, medical imaging exams and procedure reports are released immediately into your electronic medical record. You may view this report before your referring provider. If you have questions, please contact your health care provider. Indication: Pain. Radiculopathy. Technique: CT of the lumbar spine was performed without intravenous contrast. Comparison: Lumbar spine radiographs 12/24/2022. Findings: The vertebral body heights are maintained without evidence of fracture. Spine alignment is maintained. Mild disc degeneration. T12-L1: No spinal canal or neural foraminal stenosis. L1-2: Minimal disc bulge without spinal canal or neural foraminal narrowing. L2-3: Minimal disc bulge without spinal canal or neural foraminal narrowing. L3-4: Minimal disc bulge without spinal canal or neural foraminal narrowing. L4-5: Minimal disc bulge without spinal canal or neural foraminal narrowing. L5-S1: No spinal canal narrowing. [id number] right and mild left neural foraminal narrowing. Mild sacroiliac joint osteoarthritis. Infrarenal abdominal aortic aneurysm measuring up to 2.9 cm. Impression: 1. No acute osseous injury involving the lumbar spine. 2. At L5-S1, [id number] right and mild left neural foraminal narrowing. 3. Mild spondylosis at the remaining lumbar levels. 4. Infrarenal abdominal aortic aneurysm measuring up to 2.9 cm. Please note that all CT scans at this facility use dose modulation, iterative reconstruction, and/or weight-based dosing when appropriate to reduce radiation dose to as low as reasonably achievable. Dictated by Dutch Boles MD @ 06/04/2024 4:17:44 PM (Electronically Signed)
--- NOTE | 2024-06-04 14:34 | ED_ITS ---
HPI - General Adult General Date Seen: 06/04/24 Chief complaint: Back Injury/Pain Stated complaint: Lower back pain Time Seen by Provider: 06/04/24 14:24 History of Present Illness HPI narrative: Patient is a 79-year-old male with a history of atrial fibrillation, anticoagulated, Crohn's disease, abdominal aortic aneurysm measured at 3.3 cm in 2022, obesity and a family history of prostate cancer who presents with low back pain which is been present for 3 weeks. He says that he knows when it started, he had bent over to pick something up and tweaked his back. Since then he has had pain in the midline in the lumbar region with some radiation to the left g roin. He has not had bowel or bladder complaints. He has not had numbness or weakness. He has not had fevers, chills, night sweats or unexpected weight loss. He has been taking Tylenol and has had some Flexeril at home which helps a little bit, but pain has been persistent and he is having difficulty managing it. Yesterday he almost fell and his gave him a walker to use to get around. He has not had any abdominal pain. He feels best when he is standing, pain is worse when he goes from sitting to lying, lying to standing etcetera. Related Data Home Medications ?Medication ?Instructions ?Recorded ?Confirmed budesonide 180 mcg/actuation 2 inh inhalation BID 04/07/22 04/11/24 breath activated powder inhaler azathioprine 50 mg tablet 50 mg PO DAILY 04/11/24 04/11/24 Previous Rx's ?Medication ?Instructions ?Recorded tramadol 50 mg tablet 50 - 100 mg (1 - 2 x 50 mg) PO Q6H 12/24/22 PRN pain #60 tabs nystatin 100,000 unit/gram topical 1 applic topical BID #30 grams 02/29/24 ointment albuterol sulfate 90 mcg/actuation 2 puff inhalation Q6H PRN 04/11/24 aerosol inhaler shortness of breath or wheezing #8.5 grams empagliflozin 25 mg tablet 25 mg PO QAM #90 tabs 04/11/24 (Jardiance) glipizide 10 mg tablet, extended 10 mg PO BID #180 tabs 04/11/24 release 24 hr losartan 25 mg tablet 25 mg PO DAILY #90 tabs 04/11/24 metformin 500 mg tablet,extended 1,000 mg (2 x 500 mg) PO QDAY #180 04/11/24 release 24 hr tabs metoprolol tartrate 100 mg tablet 100 mg PO BID #180 tabs 04/11/24 rivaroxaban 20 mg tablet 20 mg PO DAILY #90 tabs 04/11/24 rosuvastatin 40 mg tablet 40 mg PO DAILY #90 tabs 04/11/24 pioglitazone 15 mg tablet 15 mg PO QDAY #90 tabs 04/13/24 mesalamine 1.2 gram tablet,delayed 4.8 g (4 x 1.2 gram) PO DAILY #360 05/27/24 release tabs oxycodone 5 mg tablet 5 mg PO Q8H PRN pain #10 tabs 06/04/24 Allergies Allergy/AdvReac Type Severity Reaction Status Date / Time No Known Allergies Allergy Unknown Verified 06/04/24 14:06 Review of Systems 2 Status of ROS: Reports: 10 or more systems reviewed and unremarkable except as noted in History and below PFSH PFSH Surgical History History of umbilical hernia repair ?Z98.890 - Other specified postprocedural states (ICD-10) ?Z87.19 - Personal history of other diseases of the digestive system (ICD-10) Family History Other Colon cancer Prostate cancer Social History What is your current living situation?: I presently have a place to live Problems where you live: no known problems In the past 12 months, utilities in danger of being shut off: no In past 12 months, lack of transportation kept you from medical appts, meetings, work, or getting things needed for daily living: no In the past 12 mos, have been you worried that your food would run out before you had money to buy more?: never true In the past 12 mos, the food you bought just didn't last and you didn't have money to buy more?: never true Highest level of school completed/degree received: high school graduate Smoking Status: Former smoker Do you use any of these nicotine containing products: None Second hand tobacco smoke exposure: No How often do you have a drink containing alcohol: never How often do you have six or more drinks on one occasion: Never AUDIT-C Alcohol total score: 0 Non-prescribed substance use: denies use Caffeine: Yes How often does anyone, including family, friends and others, physically hurt you : never How often does anyone, including family, friends and others, insult or talk down to you: never How often does anyone, including family, friends and others, threaten you with harm: never How often does anyone, including family, friends and others, scream or curse at you: never service: Yes Exam Narrative: Exam Narrative: Vital signs reviewed In general, alert, nontoxic elderly male. Head: Normocephalic, atraumatic. Eyes: Sclera clear. Pupils equal and reactive. ENT: Mucous membranes moist. Neck: Supple without adenopathy. Heart: Regular rate and rhythm without murmur. Lungs: Clear. No increased work of breathing, crackles or wheezes. Abdomen: Soft, nontender to palpation. Obese. Back: No real tenderness to palpation in the lumbar spine. No tenderness over the SI joint. Extremities: Well perfused, pulses intact. No significant edema. Neurologic: Alert, conversant. Speech fluent, face symmetric. Moves all extremities equally. Skin: Warm, dry well perfused. Affect: Normal. Const: Vital Signs, click to edit/add: Vital Signs - 24 hr 06/04/24 13:59 06/04/24 17:00 06/04/24 18:38 Temperature 97.1 F L Pulse Rate [Right Pulse Oximeter] 63 75 83 Respiratory Rate 18 16 16 Blood Pressure [Ri ght Upper Arm] 113/76 123/88 Pulse Oximetry 96 93 Oxygen Delivery Me thod Room Air Room Air Room Air 06/04/24 19:29 Temperature Pulse Rate [Right Pulse Oximeter] 79 Respiratory Rate 16 Blood Pressure [Ri ght Upper Arm] 127/92 H Pulse Oximetry Oxygen Delivery Me thod Course Course ED Course: Given his age and medical history, am going to order CT scan of the lumbar spine. I do not have significant suspicion of aortic pathology in this case given the duration of his symptoms and the size of his aneurysm when last imaged , but I think it is reasonable to make sure he does not have a compression fracture, evidence of metastatic disease or other bony pathology, and we will also be able to just check and make sure his aorta is not significantly changed. I do not believe this to be intra-abdominal pathology such as diverticulitis, cholecystitis, pancreatitis etcetera. Does not sound likely to be related to pyelonephritis, kidney stone etcetera. Seems to be musculoskeletal. Will try giving him a little morphine and Solu-Medrol for pain control. CT scan by my review did not show any acute findings such as compression fracture or bone lesions. Read as negative by Radiology for anything acute. He does have a little bit of mild to moderate neural foraminal stenosis at L5-S1. I was talking with him a bit more about this groin pain which initially was presented to me as starting at the same time as his back pain, but he tells me that really it that is been going on on and off for quite some time and does not seem to be specifically related to the back pain. Without that, this seems less radicular. There is no obvious disc herniation on CT scan. He had another dose of morphine, had an oxycodone here as well as a mg of Ativan. He is ambulatory without significant difficulty, is doing better with the walker than without. He does not have any acute neurologic changes and again no red flag symptoms to suggest another urgent neurologic process such as hemorrhage or infection. We discussed need for possible rehab placement, they would like to defer that for now. I would like to try going home with pain medications and will see how he does. I recommended follow-up with our spine clinic next week, if in the meantime he is not managing well at home, develops new symptoms such as fever, weakness, bowel bladder changes, return to the ER at any time. Vital Signs Vital signs: Initial Vital Signs Temperature 97.1 F L 06/04/24 13:59 Temperature Source Temporal Artery Scan 06/04/24 13:59 Pulse Rate 63 06/04/24 13:59 Pulse Rhythm Regular 06/04/24 13:59 Respiratory Rate 18 06/04/24 13:59 Blood Pressure 113/76 06/04/24 13:59 Blood Pressure Mean 88 06/04/24 13:59 Blood Pressure Position Sitting 06/04/24 13:59 Pulse Oximetry 96 06/04/24 13:59 Oxygen Delivery Method Room Air 06/04/24 13:59 Vital Signs Temperature 97.1 F L 06/04/24 13:59 Pulse Rate 63 06/04/24 13:59 Respiratory Rate 18 06/04/24 13:59 Blood Pressure 113/76 06/04/24 13:59 Pulse Oximetry 96 06/04/24 13:59 Oxygen Delivery Method Room Air 06/04/24 13:59 Temperature 97.1 F L 06/04/24 13:59 Pulse Rate 79 06/04/24 19:29 Respiratory Rate 16 06/04/24 19:29 Blood Pressure 127/92 H 06/04/24 19:29 Pulse Oximetry 93 06/04/24 17:00 Oxygen Delivery Method Room Air 06/04/24 18:38 Medications Administered Medications: Discontinued Medications Generic Name Dose Route Start Last Admin Trade Name Andrésq PRN Reason Stop Dose Admin Acetaminophen 1,000 mg 06/04/24 16:39 06/04/24 16:55 Acetaminophen 500 Mg Tablet PO 06/04/24 16:40 1,000 mg ONCE ONE Administration Lorazepam 1 mg 06/04/24 17:38 06/04/24 17:45 Lorazepam 2 Mg/Ml Inj IVP 06/04/24 17:39 1 mg ONCE ONE Administration Methylprednisolone Sodium Succinate 125 mg 06/04/24 14:33 06/04/24 15:14 Methylprednisolone Sod Succ 62.5 Mg/Ml (125) IVP 06/04/24 14:34 125 mg ONCE ONE Administration Morphine Sulfate 4 mg 06/04/24 14:33 06/04/24 15:14 Morphine 4 Mg/Ml Inj IVP 06/04/24 14:34 4 mg ONCE ONE Administration Morphine Sulfate 4 mg 06/04/24 16:39 06/04/24 16:55 Morphine 4 Mg/Ml Inj IVP 06/04/24 16:40 4 mg ONCE ONE Administration Oxycodone HCl 5 mg 06/04/24 16:39 06/04/24 16:55 Oxycodone 5 Mg Tablet PO 06/04/24 16:40 5 mg ONCE ONE Administration Discharge Plan Discharge Clinical Impression: Low back pain Patient Disposition: Home, Self-Care Condition: Improved Instructions: Acute Low Back Pain (ED) Additional Instructions: Tylenol 1000 mg daily. Oxycodone if needed for uncontrolled pain. I would like you to make an appointment to be followed up in the spine clinic, phone number [phone]. If you are not improving, you may need additional imaging, physical therapy, etc.. If at any time you feel that things are worsening, you have new symptoms such as fever, chills, night sweats, bowel or bladder changes, weakness, return to the emergency department. Ice and heat are always good options as well. Prescriptions: New oxycodone 5 mg tablet 5 mg PO Q8H PRN (Reason: pain) Qty: 10 0RF No Action budesonide 180 mcg/actuation aerosol powdr breath activated 2 inh inhalation BID tramadol 50 mg tablet 50 - 100 mg PO Q6H PRN (Reason: pain) Qty: 60 1RF azathioprine 50 mg tablet 50 mg PO DAILY albuterol sulfate 90 mcg/actuation HFA aerosol inhaler 2 puff inhalation Q6H PRN (Reason: shortness of breath or wheezing) Qty: 8.5 2RF Jardiance 25 mg tablet 25 mg PO QAM Qty: 90 3RF glipizide 10 mg tablet extended release 24hr 10 mg PO BID Qty: 180 3RF losartan 25 mg tablet 25 mg PO DAILY Qty: 90 3RF metformin 500 mg tablet extended release 24 hr 1,000 mg PO QDAY Qty: 180 3RF metoprolol tartrate 100 mg tablet 100 mg PO BID Qty: 180 3RF rivaroxaban 20 mg tablet 20 mg PO DAILY Qty: 90 3RF Rx Instructions: WITH MEAL rosuvastatin 40 mg tablet 40 mg PO DAILY Qty: 90 3RF nystatin 100,000 unit/gram ointment 1 applic topical BID Qty: 30 2RF pioglitazone 15 mg tablet 15 mg PO QDAY Qty: 90 4RF mesalamine 1.2 gram tablet,delayed release (DR/EC) 4.8 g PO DAILY Qty: 360 1RF Follow Up/Referrals: John Chavis MD [Primary Care Provider] - Stand Alone Forms: [facility] Info Instructions
--- OUTSIDE RECORDS SUMMARY | 2024-06-04 14:39 | XMS_ITS | Continuity of Care Document ---
Author Name [facility] Organization [facility] Care Team Providers Care Chip Drier Name Role Phone [facility] Unavailable Unavailable Problems Combined list of problems from Department of Defense and Veterans Affairs facilities. It does not include entries that were removed or entered in error. Problem Status Onset Date Problem Type Date of Resolution Comments Source Morbid obesity (SNOMED CT [id number]) Active Condition [facility] Social History Combined list of available smoking, tobacco, and other social history from Department of Defense and Veterans Affairs facilities. Social History Type Response Date Comment Sourc e Tobacco smoking status NHIS LIFETIME NON-TOBACCO USER 07/18/2013 [facility]
[2024-06-04] MEDS: MORPHINE 4 MG/ML INJ IVP ×2 (15:14→16:55)
[2024-06-04] MEDS: METHYLPREDNISOLONE SOD SUCC 62.5 MG/ML (125) 125 MG IVP (15:14)
[2024-06-04] MEDS: OXYCODONE 5 MG TABLET PO (16:55)
[2024-06-04] MEDS: ACETAMINOPHEN 500 MG TABLET 1000 MG PO (16:55)
[2024-06-04 17:00] VITALS: BP 123/88; PULSE 75; RESP 16; O2SAT 93
[2024-06-04] MEDS: LORazepam 2 MG/ML inj 1 MG IVP (17:45)
[2024-06-04 18:38] VITALS: PULSE 83; RESP 16
[2024-06-04 19:29] VITALS: BP 127/92; PULSE 79; RESP 16
== END 2024-06-04 19:41 | disposition home or self-care (01) ==
PROVIDERS: Emergency Provider Emergency Medicine; PCP Family Medicine
DX: M54.50 Low back pain, unspecified (principal)
CPT/HCPCS: 72131; 96374; 96375; 99284; A9270; J2060; J2270; J2919

== ENCOUNTER 2024-11-04 07:30 | Outpatient (RCR) | payer MEDICARE, SELFPAY ==
--- NOTE | 2024-10-28 10:19 | PT.OPEX ---
PT [place] Outpatient Eval PT [facility] Outpatient Eval Start: 10/28/24 08:33 Freq: Status: Active Protocol: Document 10/28/24 08:33 FLORENTIN (Rec: 10/28/24 10:11 FLORENTIN [id number]) E-signed By Bernadine Lyon DPT Physical Therapy Outpatient Evaluation Insurance Information Recert Due Date 01/26/25 Insurance Name Medicare B,[facility] Medical Diagnosis R hip OA R LE radicular pain Treating Diagnosis R hip pain, impaired R hip ROM, core/hip/glut weakness, R groin/thigh pain, limited tolerance for extended standing/walking, increased effort/difficulty with sit/ supine transfers Subjective Subjective Patient reports R hip/thigh/groin pain for the last 6+ months. He reports having R hip xray about a year ago, R hip OA. He had injection to R hip about a year ago at [facility]. States it was only helpful for a couple of weeks. He reports having flare up of R hip/thigh/groin pain/sx back in May with increased activity when taking the [employer] tree down. States his back went out for about 3 weeks and then his back was feeling better but he continues to have issues with R hip/thigh /groin. He reports some sharp, stabbing pains on occasion into R thigh, wrap around to R groin and the pain is debilitating. He reports decreased pain at rest, sitting. Increased pain with activity, standing, walking, movement but it is intermittent and he has some good days and then some bad days that he can't stand/walk. He is negotiating stairs with step to pattern up/down. Pain range 1-9/10. He is using tylenol as needed, not needing lately but was taking daily a few weeks ago. Reports trying some ice/heat but not using regularly. Patient is hoping PT will be helpful in decreasing pain and improving his hip mobility and walking. Return to MD if not improving but he does not want to have surgery. Date of Last 10/26/24 Physician Visit Current Work Status Retired Precautions Treatment Hx: DM, HTN, A-fib, abdominal aortic aneurysm, asthma, Precautions/ OA Contraindications Assessment Assessment/ Patient is a 79 year old male with R hip pain, impaired Impression R hip ROM, core/hip/glut weakness, R groin/thigh pain, limited tolerance for extended standing/walking, increased effort/difficulty with sit/supine transfers. Pain range 1-9/10. Pain is lower/minimal at rest. Patient reports increased pain with standing/walking, lifting, stairs. States the pain in R thigh/groin is sharp, stabbing and activity/walking is difficult or very limited when pain/sx flare up. Patient reports hx R hip OA and also hx of some LBP issues. He flared up his LB about 6 months ago. His pain/sx have continued since this back flare up in May. R hip ROM is tight, stiff, limited in all directions. R hip scour/ grind testing positive with pain and limited motion. Patient denies tenderness with palpation of R lateral hip or R ITB/thigh region. He denies tenderness with palpation/mobs to bilateral LB/SI region. Patient reports xrays of hip show OA and he had injection to R hip about a year ago. Patient with core/hip/glut weakness. Patient with decreased activity tolerance, gets SOB, winded with short distance walking, transfers , light activity/exercises. He reports hx of asthma, does not use his inhaler very often. He is amb without an AD. Denies any recent falls. He reports minimal pain this morning, main c/o tightness, stiffness R hip/ thigh/groin. Able to loosen up some with MT treatment. Also initiated exercises and issues for HEP. Patient would benefit from skilled PT for pain/sx management, improved R hip mobility/ROM, core/hip/glut/LE strengthening, posture/body mechanics training, improved activity tolerance/conditioning/endurance, and establishment of HEP. Plan of Care Rehabilitation Good Potential Physical Therapy 1. Decrease R hip/thigh/groin pain to less than/equal Goals to 3/10 with daily activities and with the progression of PT activities over the next 4-6 weeks. 2. Improve R hip ROM over the next 6-8 weeks for improved R hip mobility with ambulation/transfers and decreased R hip pain with daily/home activities. 3. Improve hip/glut/LE/core strength over the next 10- 12 weeks for decreased stress/pain to R hip/thigh/groin /LB, improved ease of sit/supine transfers, and improved tolerance for extended standing/walking activities without flare up of pain/sx. 4. Patient will be I with HEP within 12 weeks for progression toward above goals, ongoing self management of pain/sx, ongoing self improvements in R hip ROM/mobility/strength, and for return to daily/ home activities including standing/walking/lifting without flare up of pain/sx. Coordination/ Referral Source Communication With Treatment Plan/ Manual Therapy,Therapeutic Exercises Direct Interventions Frequency/Duration 1x/week Patient Will Be Completion of LTG(s),Skills Plateau,Independent w/HEP, Discharged From Independently Progressing Therapy Evaluation Billing Untimed Code 20 Treatment Minutes Complexity Moderate Certification Information Initial 10/28/24 Certification Date Ending Certification 01/26/25 Date Provider Signature Yes Required Provider Signature POC & Medical Necessity Shows Agreement With Physician NPI Number Write NPI# Here Physician Comment/ : Change Physician Signature Please Sign/Date Here & Date Requested
== END 2025-03-04 23:59 | disposition home or self-care (01) ==
PROVIDERS: PCP Family Medicine; Visit Provider Family Medicine
DX: M16.11 Unilateral primary osteoarthritis, right hip (principal); M54.16 Radiculopathy, lumbar region; Z51.89 Encounter for other specified aftercare
CPT/HCPCS: 97110; 97140; 97162